=== PATIENT | female | born 1965 | race African-American/Black ===

== ENCOUNTER → 2016-09-12 | Outpatient (CLI) | payer MEDICARE, MEDICAID ==
[2016-09-12 18:03] LABS: ALBUMIN 3.3 g/dL (3.5-5.0); ANION GAP 9 (5-19); BLOOD UREA NITROGEN 18 mg/dL (7-20); CALCIUM 8.2 mg/dL (8.4-10.2); CARBON DIOXIDE 24 mmol/L (22-30); CHLORIDE 109 mmol/L (98-107); CREATININE RESULT 1.17 mg/dL (0.52-1.25); GLUCOSE 79 mg/dL (75-110); POTASSIUM 4.9 mmol/L (3.6-5.0); SODIUM 142.4 mmol/L (137-145)
== END ==
LOC: OD 17:06
PROVIDERS: ATTEND Internal Medicine Nephrology
DX: N18.3 Chronic kidney disease, stage 3 (moderate) (principal); E83.51 Hypocalcemia
CPT/HCPCS: 36415; 80048; 82040

== ENCOUNTER → 2016-12-05 | Outpatient (CLI) | payer MEDICARE, MEDICAID | LOC: WI 09:12 | PROVIDERS: ATTEND Internal Medicine | DX: Z12.31 Encounter for screening mammogram for malignant neoplasm of breast (principal) | CPT/HCPCS: 77067; G0202 ==

== ENCOUNTER → 2016-12-12 | Outpatient (CLI) | payer MEDICARE, MEDICAID ==
[2016-12-12 13:06] LABS: APPEARANCE,URINE CLEAR; BILIRUBIN,URINE NEGATIVE (NEGATIVE); GLUCOSE, URINE NEGATIVE (NEGATIVE); KETONES,URINE NEGATIVE (NEGATIVE); LEUKOCYTE ESTERASE,URINE NEGATIVE (NEGATIVE); NITRITE,URINE NEGATIVE (NEGATIVE); PROTEIN,URINE 30 mg/dL (NEGATIVE); URINE SPECIFIC GRAVITY 1.013; UROBILINOGEN,URINE NEGATIVE mg/dL (<2.0)
[2016-12-12 13:06] LABS: ABSOLUTE LYMPHOCYTES (AUTO) 1.3 10^3/uL (0.5-4.7); ABSOLUTE MONOCYTES (AUTO) 0.5 10^3/uL (0.1-1.4); ABSOLUTE NEUT (AUTO) 2.7 10^3/uL (1.7-8.2); BASOPHILS % (AUTO) 0.6 % (0-2); EOSINOPHILS % (AUTO) 0.1 % (0-6); HEMATOCRIT 27.2 % (36.0-47.0); HEMOGLOBIN 8.7 g/dL (12.0-15.5); HGB HCT DIFFERENCE -1.1; MEAN CORPUSCULAR HEMOGLOBIN 27.5 pg (27.0-33.4); MEAN CORPUSCULAR HGB CONC 32.1 g/dL (32.0-36.0); MEAN CORPUSCULAR VOLUME 86 fl (80-97); MONOCYTES % (AUTO) 11.5 % (3-13); RED BLOOD COUNT 3.17 10^6/uL (3.72-5.28); RED CELL DISTRIBUTION WIDTH 16.6 % (11.5-14.0); SEGMENTED NEUTROPHILS % (AUTO) 59.8 % (42-78); WHITE BLOOD COUNT 4.6 10^3/uL (4.0-10.5)
[2016-12-12 13:20] LABS: ALBUMIN 4.2 g/dL (3.5-5.0); ANION GAP 13 (5-19); BLOOD UREA NITROGEN 24 mg/dL (7-20); CALCIUM 8.9 mg/dL (8.4-10.2); CARBON DIOXIDE 17 mmol/L (22-30); CHLORIDE 113 mmol/L (98-107); CREATININE RESULT 1.44 mg/dL (0.52-1.25); GLUCOSE 144 mg/dL (75-110); PHOSPHORUS 4.2 mg/dL (2.5-4.5); POTASSIUM 5.2 mmol/L (3.6-5.0); SODIUM 142.9 mmol/L (137-145)
[2016-12-13 07:12] LABS: VITAMIN D 25-HYDROXY 14.2 ng/mL (30.0-100.0)
== END ==
LOC: OD 12:03
PROVIDERS: ATTEND Specialist
DX: G35 Multiple sclerosis (principal); N18.3 Chronic kidney disease, stage 3 (moderate); R80.1 Persistent proteinuria, unspecified; N25.81 Secondary hyperparathyroidism of renal origin
CPT/HCPCS: 36415; 80048; 81001; 82040; 82306; 82570; 83970; 84100; 84156; 85025

== ENCOUNTER → 2017-02-15 | Outpatient (CLI) | payer MEDICARE, MEDICAID ==
[2017-02-15 14:46] LABS: ANION GAP 9 (5-19); BLOOD UREA NITROGEN 27 mg/dL (7-20); CALCIUM 8.8 mg/dL (8.4-10.2); CARBON DIOXIDE 20 mmol/L (22-30); CHLORIDE 111 mmol/L (98-107); CREATININE RESULT 1.37 mg/dL (0.52-1.25); GLUCOSE 145 mg/dL (75-110); SODIUM 139.9 mmol/L (137-145)
[2017-02-15 16:09] LABS: URINE CREATININE 106.2 mg/dL (15-278); URINE PROTEIN 93.3 mg/dL (<12)
[2017-02-16 07:14] LABS: VITAMIN D 25-HYDROXY 13.3 ng/mL (30.0-100.0)
== END ==
LOC: OD 13:30
PROVIDERS: ATTEND Internal Medicine Nephrology
DX: N18.3 Chronic kidney disease, stage 3 (moderate) (principal); R80.1 Persistent proteinuria, unspecified; E55.9 Vitamin D deficiency, unspecified; N25.81 Secondary hyperparathyroidism of renal origin
CPT/HCPCS: 36415; 80048; 82306; 82570; 83970; 84156

== ENCOUNTER 2017-02-16 20:20 | Observation (INO) | payer MEDICARE, MEDICAID ==
[2017-02-16 22:13] LABS: ABSOLUTE MONOCYTES (AUTO) 0.5 10^3/uL (0.1-1.4); ABSOLUTE NEUT (AUTO) 2.5 10^3/uL (1.7-8.2); BASOPHILS % (AUTO) 0.6 % (0-2); EOSINOPHILS % (AUTO) 0.5 % (0-6); HEMATOCRIT 34.3 % (36.0-47.0); HEMOGLOBIN 10.3 g/dL (12.0-15.5); HGB HCT DIFFERENCE -3.4; LYMPHOCYTES % (AUTO) 39.6 % (13-45); MEAN CORPUSCULAR HEMOGLOBIN 26.3 pg (27.0-33.4); MEAN CORPUSCULAR HGB CONC 30.1 g/dL (32.0-36.0); MEAN CORPUSCULAR VOLUME 88 fl (80-97); MONOCYTES % (AUTO) 9.4 % (3-13); RED BLOOD COUNT 3.92 10^6/uL (3.72-5.28); RED CELL DISTRIBUTION WIDTH 15.3 % (11.5-14.0); SEGMENTED NEUTROPHILS % (AUTO) 49.9 % (42-78); WHITE BLOOD COUNT 5.1 10^3/uL (4.0-10.5)
[2017-02-16 22:32] LABS: ALANINE AMINOTRANSFERASE 25 U/L (9-52); ALKALINE PHOSPHATASE 182 U/L (38-126); ANION GAP 9 (5-19); ASPARTATE AMINO TRANSFERASE 13 U/L (14-36); BILIRUBIN,DIRECT 0.3 mg/dL (0.0-0.4); BILIRUBIN,TOTAL 0.3 mg/dL (0.2-1.3); BLOOD UREA NITROGEN 22 mg/dL (7-20); CALCIUM 7.2 mg/dL (8.4-10.2); CARBON DIOXIDE 17 mmol/L (22-30); CHLORIDE 117 mmol/L (98-107); CREATINE KINASE 45 U/L (30-135); CREATININE RESULT 1.07 mg/dL (0.52-1.25); GLUCOSE 166 mg/dL (75-110); POTASSIUM 4.3 mmol/L (3.6-5.0); SODIUM 142.5 mmol/L (137-145); TOTAL PROTEIN 5.4 g/dL (6.3-8.2)
[2017-02-16 22:33] LABS: ANISOCYTOSIS SLIGHT
[2017-02-16 22:35] LABS: HYPOCHROMASIA SLIGHT; POIKILOCYTOSIS SLIGHT; POLYCHROMASIA SLIGHT; TARGET CELLS 1+; TEAR DROP CELLS SLIGHT
[2017-02-16 22:50] LABS: TROPONIN I < 0.012 ng/mL
--- NOTE | 2017-02-16 22:53 | RADIOLOGY REPORT (SQ) ---
EXAM DESCRIPTION: CHEST SINGLE VIEW COMPLETED DATE/TIME: 02/16/2017 10:22 pm REASON FOR STUDY: chest pain COMPARISON: None. EXAM PARAMETERS: NUMBER OF VIEWS: One view. TECHNIQUE: Single frontal radiographic view of the chest acquired. RADIATION DOSE: NA LIMITATIONS: None. FINDINGS: LUNGS AND PLEURA: No opacities, masses or pneumothorax. No pleural effusion. MEDIASTINUM AND HILAR STRUCTURES: No masses. Contour normal. HEART AND VASCULAR STRUCTURES: Heart normal in size. Normal vasculature. BONES: No acute findings. HARDWARE: Port-A-Cath is again identified with its tip projected at the level of the superior vena ca va. OTHER: No other significant finding. IMPRESSION: No significant interval change. No acute findings. Other findings as noted above. TECHNICAL DOCUMENTATION: JOB ID: [id number]
--- NOTE | 2017-02-16 23:12 | ER Document Report ---
ED General - General Chief Complaint: Chest Pain Stated Complaint: CHEST PAIN Time Seen by Provider: 02/16/17 21:52 Mode of Arrival: Ambulatory Information source: Patient Notes: 51-year-old female history of multiple myeloma presents with complaints of chest pressure sensation almost daily lasting for 45 minutes at a time over the past week. Patient denies any fevers or chills admits to cough Patient notes normal stress test a few years ago Patient has been on chemotherapy last dose was Monday TRAVEL OUTSIDE OF THE [place] IN LAST 30 DAYS: No - HPI Onset: Last week Onset/Duration: Intermittent Quality of pain: Pressure Severity: Mild Pain Level: 1 Associated symptoms: Chest pain, Shortness of breath Exacerbated by: Denies Relieved by: Denies Similar symptoms previously: No Recently seen / treated by doctor: Yes - Related Data Allergies/Adverse Reactions: ibuprofen [From Motrin] Allergy (Verified 07/28/16 19:07) Penicillins Allergy (Verified 07/28/16 19:07) tramadol [Tramadol] Allergy (Verified 07/28/16 19:07) Past Medical History - Social History Smoking Status: Former Smoker Cigarette use (# per day): No Chew tobacco use (# tins/day): No Smoking Education Provided: No Frequency of alcohol use: None Drug Abuse: None Family History: Reviewed & Not Pertinent Patient has suicidal ideation: No Patient has homicidal ideation: No - Past Medical History Cardiac Medical History: Reports: Hx Hypercholesterolemia, Hx Hypertension Denies: Hx Coronary Artery Disease, Hx Heart Attack Pulmonary Medical History: Denies: Hx Asthma, Hx Bronchitis, Hx COPD, Hx Pneumonia, Hx Tuberculosis Neurological Medical History: Denies: Hx Cerebrovascular Accident, Hx Seizures Endocrine Medical History: Reports: Hx Diabetes Mellitus Type 2 Renal/ Medical History: Denies: Hx Peritoneal Dialysis Malignancy Medical History: Reports: Hx Bone Cancer - multiple myeloma Musculoskeltal Medical History: Denies Hx Arthritis, Reports Hx Multiple Sclerosis Psychiatric Medical History: Reports: Hx Anxiety, Hx Depression Past Surgical History: Reports: Hx Abdominal Surgery - gastric bypass 08/08, Hx Cholecystectomy, Hx Hysterectomy, Hx Tubal Ligation. Denies: Hx Pacemaker - Immunizations Hx Diphtheria, Pertussis, Tetanus Vaccination: No Review of Systems - Review of Systems Notes: REVIEW OF SYSTEMS: CONSTITUTIONAL : Denies fever, chills, or sweats. Denies recent illness. EENT: Denies eye, ear, throat, or mouth pain or symptoms. Denies nasal or sinus congestion or discharge. Denies throat, tongue, or mouth swelling or difficulty swallowing. CARDIOVASCULAR: Admits to chest pain RESPIRATORY: Admits to shortness of breath GASTROINTESTINAL: Denies abdominal pain or distention. Denies nausea, vomiting , or diarrhea. Denies blood in vomitus, stools, or per rectum. Denies black, tarry stools. Denies constipation. GENITOURINARY: Denies difficulty urinating, painful urination, burning, frequency, blood in urine, or discharge. FEMALE GENITOURINARY: Denies vaginal bleeding, heavy or abnormal periods, irregular periods. Denies vaginal discharge or odor. MUSCULOSKELETAL: Denies back or neck pain or stiffness. Denies joint pain or swelling. SKIN: Denies rash, lesions or sores. HEMATOLOGIC : Denies easy bruising or bleeding. LYMPHATIC: Denies swollen, enlarged glands. NEUROLOGICAL: Denies confusion or altered mental status. Denies passing out or loss of consciousness. Denies dizziness or lightheadedness. Denies headache. Denies weakness or paralysis or loss of use of either side. Denies problems with gait or speech. Denies sensory loss, numbness, or tingling. Denies seizures. PSYCHIATRIC: Denies anxiety or stress. Denies depression, suicidal ideation, or homicidal ideation. ALL OTHER SYSTEMS REVIEWED AND NEGATIVE. PHYSICAL EXAMINATION: GENERAL: Well-appearing, well-nourished and in no acute distress. HEAD: Atraumatic, normocephalic. EYES: Pupils equal round and reactive to light, extraocular movements intact, conjunctiva are normal. ENT: Nares patent, oropharynx clear without exudates. Moist mucous membranes. NECK: Normal range of motion, supple without lymphadenopathy LUNGS: Breath sounds clear to auscultation bilaterally and equal. No wheezes rales or rhonchi. HEART: Regular rate and rhythm without murmurs ABDOMEN: Soft, nontender, nondistended abdomen. No guarding, no rebound. No masses appreciated. Female : deferred Musculoskeletal: Normal range of motion, no pitting or edema. No cyanosis. NEUROLOGICAL: Cranial nerves grossly intact. Normal speech, normal gait. Normal sensory, motor exams PSYCH: Normal mood, normal affect. SKIN: Warm, Dry, normal turgor, no rashes or lesions noted. port Noted Dictation was performed using Dragon voice recognition software Physical Exam - Vital signs Vitals: Temp Pulse Resp BP Pulse Ox 98.1 F 121 H 16 151/88 H 97 02/16/17 20:55 02/16/17 20:55 02/16/17 20:55 02/16/17 20:55 02/16/17 20:55 Course - Re-evaluation Re-evalutation: 02/16/17 23:19 Patient will be admitted for observation for ACS rule out. A CT of the chest has been ordered due to the history of multiple myeloma and chest pain and shortness of breath - Vital Signs Vital signs: Temp Pulse Resp BP Pulse Ox 98.1 F 121 H 16 151/88 H 99 02/16/17 20:55 02/16/17 20:55 02/16/17 20:55 02/16/17 20:55 02/16/17 22:15 - Laboratory Result Diagrams: 02/16/17 21:00 02/16/17 21:00 Laboratory results interpreted by me: 02/16/17 02/16/17 21:00 21:00 Hgb 10.3 L Hct 34.3 L MCH 26.3 L MCHC 30.1 L RDW 15.3 H Plt Count 145 L Chloride 117 H Carbon Dioxide 17 L BUN 22 H Est GFR (Non-Af Amer) 54 L Glucose 166 H Calcium 7.2 L AST 13 L Alkaline Phosphatase 182 H Total Protein 5.4 L Albumin 3.0 L - Diagnostic Test Radiology reviewed: Image reviewed, Reports reviewed - EKG Interpretation by Me EKG shows normal: Sinus rhythm, [place], Intervals, QRS Complexes Rate: Tachycardia Discharge - Discharge Clinical Impression: Tachycardia Chest pain Qualifiers: Chest pain type: unspecified Qualified Code(s): R07.9 - Chest pain, unspecified Multiple myeloma Qualifiers: Multiple myeloma remission status: not in remission Qualified Code(s): C90.00 - Multiple myeloma not having achieved remission Admitting Provider: [facility] Admitted: Telemetry Referrals: DEREK HALEY MD [Primary Care Provider] - Follow up as needed
[2017-02-17] MEDS ORDERED: OXYCODONE-ACETAMINOPHEN 5-325 MG TABLET PO PRN (03:11)
[2017-02-17] MEDS ORDERED: INSULIN LISPRO 100 UNIT/ML 3 ML VIAL SUBCUT PRN (03:16)
[2017-02-17] MEDS ORDERED: DEXTROSE 40% GEL 15 GM TUBE PO PRN (03:16)
[2017-02-17] MEDS ORDERED: GLUCAGON,HUMAN RECOMB 1 MG INJ IM PRN (03:16)
[2017-02-17] MEDS ORDERED: DEXTROSE 40% GEL 15 GM TUBE X 2 PO PRN (03:16)
[2017-02-17] MEDS ORDERED: DEXTROSE 50%-WATER SYRINGE 25 GM/50 ML DOSE IV PRN (03:16)
[2017-02-17] MEDS ORDERED: DEXTROSE 50%-WATER SYRINGE 12.5 GM/25 ML DOSE IV PRN (03:16)
--- NOTE | 2017-02-17 03:34 | RADIOLOGY REPORT (SQ) ---
EXAM DESCRIPTION: CTA CHEST COMPLETED DATE/TIME: 02/17/2017 12:19 am REASON FOR STUDY: chest pain ,sob COMPARISON: 12.7.15. CT, renal stone, 10/06/2012. All TECHNIQUE: CT scan of the chest performed using helical scanning technique with dynamic intravenous contrast injection. Images reviewed with lung, soft tissue and bone windows. Reconstructed coronal and sagittal MPR images reviewed. Additional 3 dimensional post-processing performed to develop Maximal Intensity Projection images (IL P). All images stored on PACS. All CT scanners at this facility use dose modulation, iterative reconstruction, and/or weight based d osing when appropriate to reduce radiation dose to as low as reasonably achievable (ALARA). [facility]: Dose Right [facility]: CareDose [facility]: Dose Right [facility]: Teradose 4D [facility]: [employer] CONTRAST TYPE AND DOSE: contrast/concentration: Isovue 370.00 mg/ml; Total Contrast Delivered: 100.0 ml; Total Saline Delivered: 40.0 ml RENAL FUNCTION: Cr 1.1 RADIATION DOSE: Up-to-date CT equipment and radiation dose reduction techniques were employed. CTDIv ol: 14.6 mGy. DLP: 426 mGy-cm. . LIMITATIONS: None. FINDINGS: LUNGS AND PLEURA: No masses, infiltrates, pneumothorax. No pleural effusions, calcificati ons. AORTA AND GREAT VESSELS: No aneurysm or dissection. HEART: No pericardial effusion. PULMONARY ARTERIES: No emboli visualized in the main pulmonary arteries or the segmental branches. HILAR AND MEDIASTINAL STRUCTURES: No identified masses or abnormal nodes. HARDWARE: Cholecystectomy. Left cardiac stimulation device and leads. UPPER ABDOMEN: 2.1 cm left adrenal adenoma, without suspicious interval change. Small intra biliary gas. THYROID AND OTHER SOFT TISSUES: No masses. No adenopathy. BONES: No acute or significant finding. 3D MIPS: Confirm above findings. OTHER: No other significant finding. IMPRESSION: No acute cardiopulmonary findings. No evidence of pulmonary emboli. TECHNICAL DOCUMENTATION: JOB ID: [id number] Quality ID # [id number]: Final reports with documentation of one or more dose reduction techniques (e.g., Au tomated exposure control, adjustment of the mA and/or kV according to patient size, use of iterative reconstruction technique) 2010 [email or web address]- All Rights Reserved
--- NOTE | 2017-02-17 03:55 | EKG REPORT ---
SEVERITY:- OTHERWISE NORMAL ECG - SINUS TACHYCARDIA : Confirmed by: Racheal Cline MD 17-Feb-2017 03:55:04
[2017-02-17 04:40] LABS: TROPONIN I < 0.012 ng/mL
[2017-02-17 13:21] LABS: CREATINE KINASE MB 0.81 ng/mL (<4.55)
[2017-02-17 13:24] LABS: TROPONIN I < 0.012 ng/mL
[2017-02-17] MEDS ORDERED: EPOETIN ALFA INJ 40000 UNIT/1 ML (RENAL) IV SCH (14:15)
[2017-02-17] MEDS ORDERED: BORTEZOMIB 3.5 MG INJ SCH (14:15)
[2017-02-17] MEDS ORDERED: OXYCODONE HCL IR 5 MG TABLET PO PRN (15:07)
--- NOTE | 2017-02-17 18:13 | PDOC H&P ---
History of Present Illness Admission Date/PCP: 02/17/17 02:00 DEREK HALEY MD History of Present Illness: DICKSON THAO is a 51 year old female she came to the emergency room last night for evaluation of a 5 day history of chest pain. CTA chest was done in the ER, it was negative for pulmonary embolism. Patient was admitted for observation and to rule out acute [place]. The chest pain is atypical in character, the chest pain is not provoked by activity and relieved by rest. The pain is sharp, seemed to radiate to the arm, the right side. She has a history of multiple myeloma on active chemotherapy, type II diabetic mellitus presently well controlled. Past Medical History Cardiac Medical History: Reports: Hyperlipidema, Hypertension Endocrine Medical History: Reports: Diabetes Mellitus Type 2 Renal/ Medical History: Reports: Chronic Kidney Disease - CKD ,stage 3 Malignancy Medical History: Reports: Other - multiple myeloma Musculoskeltal Medical History: Denies: Arthritis Psychiatric Medical History: Reports: Depression Hematology: Reports: Anemia Past Surgical History Past Surgical History: Reports: Cholecystectomy, Hysterectomy, Tubal Ligation Denies: Pacemaker Social History Smoking Status: Former Smoker Number of Years Smokin Last Time Smoked: 07/08/2011 Frequency of Alcohol Use: None Hx Recreational Drug Use: No Drugs: None Hx Prescription Drug Abuse: No Family History Family History: Reviewed & Not Pertinent Parental Family History Reviewed: Yes Children Family History Reviewed: Yes Sibling(s) Family History Reviewed.: Yes Medication/Allergy Home Medications: Amlodipine Besylate [Norvasc 10 mg Tablet] 10 mg PO DAILY 02/17/17 Calcitriol [Rocaltrol 0.25 mcg Capsule] 0.25 mcg PO DAILY 02/17/17 Donepezil HCl [Aricept 5 mg Tablet] 5 mg PO QHS 02/17/17 Doxepin HCl [Silenor] 6 mg PO QHS 02/17/17 Epoetin Leandro [Procrit Inj 40,000 Unit/1 ml Vial (Renal)] 40,000 unit INJ [id number] 02/17/17 Ergocalciferol (Vitamin D2) [Drisdol 50,000 unit (1.25MG) Capsule] 50,000 units PO TOMLINSON@1000 02/17/17 Folic Acid [Folvite 1 mg Tablet] 1 mg PO DAILY 02/17/17 Hydralazine HCl [Apresoline 25 mg Tablet] 25 mg PO TID 02/17/17 Losartan/Hydrochlorothiazide [Hyzaar 100-25 Tablet] 1 tab PO DAILY 02/17/17 Metoprolol Tartrate [Lopressor 50 mg Tablet] 50 mg PO Q12 02/17/17 Montelukast Sodium [Singulair 10 mg Tablet] 10 mg PO QHS 02/17/17 Oxycodone HCl [Oxycodone HCl 10 MG Tablet] 10 mg PO Q6HP PRN 02/17/17 Potassium Chloride [Klor-Con Sprinkle] 10 meq PO DAILY 02/17/17 Velcade 3.5 mg INJ [id number] 02/17/17 Vortioxetine Hydrobromide [Trintellix] 10 mg PO DAILY 02/17/17 Allergies/Adverse Reactions: ibuprofen [From Motrin] Allergy (Verified 07/28/16 19:07) Penicillins Allergy (Verified 07/28/16 19:07) tramadol [Tramadol] Allergy (Verified 07/28/16 19:07) Review of Systems Constitutional: PRESENT: anorexia Eyes: ABSENT: visual disturbances Ears: ABSENT: hearing changes Cardiovascular: PRESENT: chest pain Respiratory: ABSENT: cough, hemoptysis Gastrointestinal: ABSENT: abdominal pain, constipation, diarrhea, hematemesis, hematochezia, nausea, vomiting Genitourinary: ABSENT: dysuria, hematuria Musculoskeletal: ABSENT: joint swelling Integumentary: ABSENT: rash, wounds Neurological: ABSENT: abnormal gait, abnormal speech, confusion, dizziness, focal weakness, syncope Psychiatric: ABSENT: anxiety, depression, homidical ideation, suicidal ideation Endocrine: ABSENT: cold intolerance, heat intolerance, menstrual abnormalities, polydipsia, polyuria Hematologic/Lymphatic: ABSENT: easy bleeding, easy bruising, lymphadenopathy Physical Exam Vital Signs: Temp Pulse Resp BP Pulse Ox 97.8 F 82 19 163/81 H 100 02/17/17 15:52 02/17/17 15:52 02/17/17 15:52 02/17/17 15:52 02/17/17 15:52 Intake & Output 02/16/17 02/17/17 02/18/17 06:59 06:59 06:59 Intake Total 150 373 Balance 150 373 General appearance: PRESENT: no acute distress, well-developed, well-nourished Head exam: PRESENT: atraumatic, normocephalic Eye exam: PRESENT: conjunctiva pink, EOMI, PERRLA Ear exam: PRESENT: normal external ear exam Mouth exam: PRESENT: moist, tongue midline Neck exam: PRESENT: full ROM. ABSENT: carotid bruit, JVD, lymphadenopathy, thyromegaly Cardiovascular exam: PRESENT: RRR, +S1, +S2 Pulses: PRESENT: normal dorsalis pedis pul, +2 pedal pulses bilateral Vascular exam: PRESENT: normal capillary refill GI/Abdominal exam: PRESENT: normal bowel sounds, soft Rectal exam: PRESENT: deferred Neurological exam: PRESENT: alert, awake, oriented to person, oriented to place , oriented to time, oriented to situation, CN II-XII grossly intact Psychiatric exam: PRESENT: appropriate affect, normal mood Skin exam: PRESENT: dry, intact, warm Results Laboratory Results: 02/17/17 02/17/17 02/17/17 03:30 03:30 12:30 Creatine Kinase 46 47 CK-MB (CK-2) 0.80 Troponin I < 0.012 02/17/17 12:30 Creatine Kinase CK-MB (CK-2) 0.81 Troponin I < 0.012 Impressions: Chest X-Ray 02/16/17 21:00 IMPRESSION: No significant interval change. No acute findings. Other findings as noted above. Chest/Abdomen CTA 02/16/17 23:11 IMPRESSION: No acute cardiopulmonary findings. No evidence of pulmonary emboli. Assessment & Plan - Diagnosis (1) Chest pain Qualifiers: Chest pain type: unspecified Qualified Code(s): R07.9 - Chest pain, unspecified Is this a current diagnosis for this admission?: YesPlan: She is admitted for observation and evaluation of chest pain, cardiac enzymes are negative for acute [place], stress test will be scheduled outpatient (2) Multiple myeloma Qualifiers: Multiple myeloma remission status: not in remission Qualified Code(s): C90.00 - Multiple myeloma not having achieved remission Is this a current diagnosis for this admission?: Yes
--- NOTE | 2017-02-17 18:15 | PDOC DISCHARGE SUMMARY ---
General - Admit/Disc Date/PCP Admission Date/Primary Care Provider: 02/17/17 02:00 DEREK HALEY MD Discharge Date: 02/17/17 - Discharge Diagnosis (1) Chest pain Is this a current diagnosis for this admission?: Yes (2) Multiple myeloma Is this a current diagnosis for this admission?: Yes - Additional Information Discharge Diet: Diabetic Discharge Activity: Activity As Tolerated Home Medications: Amlodipine Besylate [Norvasc 10 mg Tablet] 10 mg PO DAILY 02/17/17 Calcitriol [Rocaltrol 0.25 mcg Capsule] 0.25 mcg PO DAILY 02/17/17 Donepezil HCl [Aricept 5 mg Tablet] 5 mg PO QHS 02/17/17 Doxepin HCl [Silenor] 6 mg PO QHS 02/17/17 Epoetin Leandro [Procrit Inj 40,000 Unit/1 ml Vial (Renal)] 40,000 unit INJ [id number] 02/17/17 Ergocalciferol (Vitamin D2) [Drisdol 50,000 unit (1.25MG) Capsule] 50,000 units PO TOMLINSON@1000 02/17/17 Folic Acid [Folvite 1 mg Tablet] 1 mg PO DAILY 02/17/17 Hydralazine HCl [Apresoline 25 mg Tablet] 25 mg PO TID 02/17/17 Losartan/Hydrochlorothiazide [Hyzaar 100-25 Tablet] 1 tab PO DAILY 02/17/17 Metoprolol Tartrate [Lopressor 50 mg Tablet] 50 mg PO Q12 02/17/17 Montelukast Sodium [Singulair 10 mg Tablet] 10 mg PO QHS 02/17/17 Oxycodone HCl [Oxycodone HCl 10 MG Tablet] 10 mg PO Q6HP PRN 02/17/17 Potassium Chloride [Klor-Con Sprinkle] 10 meq PO DAILY 02/17/17 Velcade 3.5 mg INJ [id number] 02/17/17 Vortioxetine Hydrobromide [Trintellix] 10 mg PO DAILY 02/17/17 History of Present Illness History of Present Illness: DICKSON THAO is a 51 year old female she came to the emergency room last night for evaluation of a 5 day history of chest pain. CTA chest was done in the ER, it was negative for pulmonary embolism. Patient was admitted for observation and to rule out acute [place]. The chest pain is atypical in character, the chest pain is not provoked by activity and relieved by rest. The pain is sharp, seemed to radiate to the arm, the right side. She has a history of multiple myeloma on active chemotherapy, type II diabetic mellitus presently well controlled. Hospital Course Hospital Course: Patient was admitted for evaluation of chest pain, CTA chest was done in the emergency room, it was negative for pulmonary embolism. Cardiac enzymes were negative for acute NV 3, she will be discharged home today with outpatient Cardiolite stress test. Physical Exam Vital Signs: Temp Pulse Resp BP Pulse Ox 97.8 F 82 19 163/81 H 100 02/17/17 15:52 02/17/17 15:52 02/17/17 15:52 02/17/17 15:52 02/17/17 15:52 Intake & Output 02/16/17 02/17/17 02/18/17 06:59 06:59 06:59 Intake Total 150 373 Balance 150 373 General appearance: PRESENT: no acute distress, well-developed, well-nourished Head exam: PRESENT: atraumatic, normocephalic Eye exam: PRESENT: conjunctiva pink, EOMI, PERRLA Ear exam: PRESENT: normal external ear exam Mouth exam: PRESENT: moist, tongue midline Neck exam: PRESENT: full ROM Respiratory exam: PRESENT: clear to auscultation kody Cardiovascular exam: PRESENT: RRR, +S1, +S2 Vascular exam: PRESENT: normal capillary refill GI/Abdominal exam: PRESENT: normal bowel sounds, soft Rectal exam: PRESENT: deferred Neurological exam: PRESENT: alert, awake, oriented to person, oriented to place , oriented to time, oriented to situation, CN II-XII grossly intact Psychiatric exam: PRESENT: appropriate affect, normal mood Skin exam: PRESENT: dry, intact, warm Results Laboratory Results: 02/17/17 02/17/17 02/17/17 03:30 03:30 12:30 Creatine Kinase 46 47 CK-MB (CK-2) 0.80 Troponin I < 0.012 02/17/17 12:30 Creatine Kinase CK-MB (CK-2) 0.81 Troponin I < 0.012 Impressions: Chest X-Ray 02/16/17 21:00 IMPRESSION: No significant interval change. No acute findings. Other findings as noted above. Chest/Abdomen CTA 02/16/17 23:11 IMPRESSION: No acute cardiopulmonary findings. No evidence of pulmonary emboli.
[2017-02-17 18:23] VITALS: BP 155/91
[2017-02-17] MEDS ORDERED: HYDRALAZINE HCL 25 MG TABLET PO SCH (22:00)
[2017-02-17] MEDS ORDERED: MONTELUKAST SODIUM 10 MG TABLET PO SCH (22:00)
[2017-02-17] MEDS ORDERED: (PENDING PHARMACY ID) (Doxepin Hcl [Silenor] 6 MG) PO SCH (22:00)
[2017-02-17] MEDS ORDERED: DONEPEZIL HCL 5 MG TABLET PO SCH (22:00)
[2017-02-17] MEDS ORDERED: METOPROLOL TARTRATE 50 MG TABLET PO SCH (22:00)
[2017-02-18] MEDS ORDERED: (PENDING PHARMACY ID) (Losartan/Hydrochlorothiazide [Hyzaar 100-25 Tablet] 1 TAB) PO SCH (10:00)
[2017-02-18] MEDS ORDERED: FOLIC ACID 1 MG TABLET PO SCH ×2 (10:00)
[2017-02-18] MEDS ORDERED: POTASSIUM CHLORIDE 10 MEQ PO SCH (10:00)
[2017-02-18] MEDS ORDERED: POTASSIUM CHLORIDE 10 MEQ TABLET.SA PO SCH (10:00)
[2017-02-18] MEDS ORDERED: CALCITRIOL 0.25 MCG CAPSULE PO SCH (10:00)
[2017-02-18] MEDS ORDERED: (PENDING PHARMACY ID) (Vortioxetine Hydrobromide [Trintellix] 10 MG) PO SCH (10:00)
[2017-02-18] MEDS ORDERED: LOSARTAN POTASSIUM 50 MG TABLET PO SCH (10:00)
[2017-02-18] MEDS ORDERED: HYDROCHLOROTHIAZIDE 25 MG TABLET PO SCH (10:00)
[2017-02-18] MEDS ORDERED: AMLODIPINE BESYLATE 10 MG TABLET PO SCH (10:00)
[2017-02-19] MEDS ORDERED: ERGOCALCIFEROL (VITAMIN D2) 50000 UNIT (1.25 MG) CAPSULE PO SCH ×2 (10:00)
== END 2017-02-17 18:45 | disposition home or self-care (01) ==
LOC: ER 20:20 → UNDOADMOB 23:40 → EH 23:40 → 4N 02-17 01:43
PROVIDERS: ADMIT Internal Medicine; ATTEND Internal Medicine
DX: R07.89 Other chest pain (principal); C90.00 Multiple myeloma not having achieved remission; I12.9 Hypertensive chronic kidney disease with stage 1 through stage 4 chronic kidney disease, or unspecified chronic kidney disease; E11.22 Type 2 diabetes mellitus with diabetic chronic kidney disease; N18.3 Chronic kidney disease, stage 3 (moderate); R00.0 Tachycardia, unspecified; Z79.899 Other long term (current) drug therapy; Z87.891 Personal history of nicotine dependence; Z90.49 Acquired absence of other specified parts of digestive tract; Z98.84 Bariatric surgery status
CPT/HCPCS: 93005; 36415; 82553 ×2; 82962; 82550 ×2; 85025; 80053; 84484 ×2; 71010; 71275; 93010; A9270 ×2; J1642; 99285; G0378; J1815

== ENCOUNTER → 2017-03-16 | Outpatient (CLI) | payer MEDICARE, MEDICAID ==
[~2017-03-16] MED LIST: AMINOPHYLLINE INJ/PF 250 MG/10 ML SDV IV ONE; REGADENOSON INJ 0.4 MG/5 ML DISP.SYRIN IV ONE
--- NOTE | 2017-03-16 20:13 | DRAGON STRESS TEST REPORT ---
INTRAVENOUS LEXISCAN CARDIOLITE STRESS TEST USING SINGLE PHOTON EMMISION COMPUTERIZED TOMOGRAPHIC. DATE OF PROCEDURE: March 16, 2017 INDICATION : Chest pain CARDIAC RISK FACTORS: Diabetes and hypertension RESTING EKG: Sinus rhythm, minor nonspecific ST segment depression with T-wave inversion lateral chest leads STRESS EKG: No significant changes noted with LexiScan bolus REASON FOR TERMINATION: Protocol. PROCEDURE REPORT: Baseline heart rate 72 beats per minute with blood pressure of 178/95. Patient had no significant complaints. Heart rate at 2 minutes post bolus 125 with a blood pressure of 157/75. 3 minutes post bolus heart rate 114 with blood pressure of 179/82. No significant EKG changes were noted. Patient had no significant complaints during the procedure or postprocedure. Patient injected with Aminophyllin 75 mg at 3 minutes or later after Lexiscan bolus. CONCLUSIONS: Normal EKG and hemodynamic response to IV LexiScan. NUCLEAR DATA: At rest the patient was given 10.45 millicuries of technetium 99 sestamibi injected intravenously. As per protocol rest gated SPECT images were obtained. Subsequently the patient was given intravenous LexiScan at a dose of 0.4 mg in 5 mL intravenously, followed by flush with normal saline. Subsequently the stress dose of 32.5 millicuries of technetium 99 sestamibi was injected intravenously. As per protocol stress gated images were obtained. NUCLEAR INTERPRETATION: Both raw and processed data were used for interpretation. Visual, qualitative, computer-generated quantitative data was used. There was good myocardial uptake of technetium compound. Motion artifact and soft tissue attenuations were noted. Increased visceral uptake was noted. Mild decreased uptake noted in the basal and mid inferior wall and distal anterior wall noted, consistent with mild ischemia of the basal and mid inferior wall and also distal anterior wall. No definitive areas of fixed perfusion defect or scars noted. EKG gated imaging showed LV EF at 53 %, rest and stress gated EF similar visually. T. I D. ratio was 1.58. Lung heart ratio noted to be within normal limits 0.27. No significant extracardiac and abnormal radiotracer activities were noted. RV free wall uptake was noted to be []. IMPRESSION: Also refer to comments under nuclear interpretation. Also test results needs to be interpreted in the context of pretest probability. 1. Mild basal and mid inferior wall ischemia and mild distal anterior wall ischemia noted. 2. There is no definitive scintigraphic evidence of myocardial infarction/scar. 3. EKG gated imaging shows left ejection fraction of approximately 53 %. 4. Clinical correlation requested as occasionally worse ischemia could be missed. In approximately 10% of the cases Lexiscan may not cause adequate vasodilatory stress. 5. Patient was noted to have transient ischemic dilatation however LV cavity was small to start with. This may suggest balanced ischemia. RECOMMENDATIONS: Aggressive risk factor modification, medical therapy. Clinical correlation with echocardiogram derived ejection fraction. Inability to exercise by itself can lead to increased cardiovascular event risks. Consider cardiology consultation and or follow-up if clinically indicated. I AM AVAILABLE FOR CARDIOLOGY CONSULTATION AND FOLLOWUP IF REQUESTED BY PMD Dinah Winston M.D., RADHA [employer] hardware assembler, Board certified in cardiovascular diseases, Nuclear cardiology, Echocardiography Cardiac CT and cardiac MRI Ph. [phone] [facility]
== END ==
LOC: RAD 08:03
PROVIDERS: ATTEND Internal Medicine
DX: R07.9 Chest pain, unspecified (principal)
CPT/HCPCS: 93017; 78452; A9500; J2785; J0280; Q9969

== ENCOUNTER 2017-05-09 00:58 | Emergency (ER) | payer MEDICARE, MEDICAID ==
--- NOTE | 2017-05-09 02:35 | ER Document Report ---
ED Burn/Smoke/Toxic Fumes - General Chief Complaint: Chemical Exposure Stated Complaint: POSSIBLE POISON[BLEACH} Time Seen by Provider: 05/09/17 02:34 Notes: The patient is a 51-year-old female, PMHx HTN, who presents after she accidentally drank a small amount of bleach in a cup of tea 8 hours ago. Patient has no symptoms at this time. TRAVEL OUTSIDE OF THE [place] IN LAST 30 DAYS: No COUNTRY TRAVELED TO/FROM: [facility] - Related Data Allergies/Adverse Reactions: ibuprofen [From Motrin] Allergy (Verified 05/09/17 01:16) Penicillins Allergy (Verified 05/09/17 01:16) tramadol [Tramadol] Allergy (Verified 05/09/17 01:16) Past Medical History - General Information source: Patient - Social History Smoking Status: Unknown if Ever Smoked Family History: Reviewed & Not Pertinent Patient has suicidal ideation: No Patient has homicidal ideation: No - Past Medical History Cardiac Medical History: Reports: Hx Hypercholesterolemia, Hx Hypertension Denies: Hx Coronary Artery Disease, Hx Heart Attack Pulmonary Medical History: Denies: Hx Asthma, Hx Bronchitis, Hx COPD, Hx Pneumonia, Hx Tuberculosis Neurological Medical History: Denies: Hx Cerebrovascular Accident, Hx Seizures Endocrine Medical History: Reports: Hx Diabetes Mellitus Type 2 Renal/ Medical History: Denies: Hx Peritoneal Dialysis Malignancy Medical History: Reports: Hx Bone Cancer - multiple myeloma Musculoskeltal Medical History: Denies Hx Arthritis, Reports Hx Multiple Sclerosis Psychiatric Medical History: Reports: Hx Anxiety, Hx Depression Past Surgical History: Reports: Hx Abdominal Surgery - gastric bypass 08/08, Hx Cholecystectomy, Hx Hysterectomy, Hx Tubal Ligation. Denies: Hx Pacemaker - Immunizations Hx Diphtheria, Pertussis, Tetanus Vaccination: No Review of Systems - Review of Systems Notes: REVIEW OF SYSTEMS: CONSTITUTIONAL: -fevers, -chills EENT: -eye pain, -difficulty swallowing, -nasal congestion CARDIOVASCULAR:-chest pain, -syncope. RESPIRATORY: -cough, -SOB GASTROINTESTINAL: -abdominal pain, -nausea, -vomiting, -diarrhea GENITOURINARY: -dysuria, -hematuria MUSCULOSKELETAL: -back pain, -neck pain SKIN: -rash or skin lesions. HEMATOLOGIC: -easy bruising or bleeding. LYMPHATIC: -swollen, enlarged glands. NEUROLOGICAL: -altered mental status or loss of consciousness, -headache, - neurologic symptoms PSYCHIATRIC: -anxiety, -depression. ALL OTHER SYSTEMS REVIEWED AND NEGATIVE. Physical Exam - Vital signs Vitals: Temp Pulse Resp BP Pulse Ox 98.4 F 86 18 183/86 H 98 05/09/17 01:05/09/17 01:05/09/17 01:05/09/17 01:05/09/17 01:19 - Notes Notes: PHYSICAL EXAMINATION: GENERAL: Well-appearing, well-nourished and in no acute distress. HEAD: Atraumatic, normocephalic. EYES: Pupils equal round and reactive to light, extraocular movements intact, sclera anicteric, conjunctiva are normal. ENT: nares patent, oropharynx clear without exudates. Moist mucous membranes. NECK: Normal range of motion, supple without lymphadenopathy LUNGS: Breath sounds clear to auscultation bilaterally and equal. No wheezes rales or rhonchi. HEART: Regular rate and rhythm without murmurs ABDOMEN: Soft, nontender, normoactive bowel sounds. No guarding, no rebound. No masses appreciated. EXTREMITIES: Normal range of motion, no pitting or edema. No cyanosis. NEUROLOGICAL: Cranial nerves grossly intact. Normal speech, normal gait. Normal sensory and motor exams. PSYCH: Normal mood, normal affect. SKIN: Warm, Dry, normal turgor, no rashes or lesions noted. Course - Re-evaluation Re-evalutation: Patient has no effects 8 hours after she may have drank a very small amount of household bleach, which is very diluted. - Vital Signs Vital signs: Temp Pulse Resp BP Pulse Ox 98.4 F 86 18 183/86 H 98 05/09/17 01:05/09/17 01:05/09/17 01:05/09/17 01:05/09/17 01:19 Discharge - Discharge Clinical Impression: Ingestion of bleach Qualifiers: Encounter type: initial encounter Injury intent: undetermined intent Qualified Code(s): T54.94XA - Toxic effect of unspecified corrosive substance, undetermined, initial encounter Condition: Stable Disposition: HOME, SELF-CARE Additional Instructions: You do not have any evidence of dangerous effects from the small amount of household bleach that you may have ingested. Forms: Elevated Blood Pressure
[2017-05-09 02:58] VITALS: BP 180/83
== END 2017-05-09 02:55 | disposition home or self-care (01) ==
LOC: ER 00:58
DX: T54.94XA Toxic effect of unspecified corrosive substance, undetermined, initial encounter (principal); I10 Essential (primary) hypertension; E11.9 Type 2 diabetes mellitus without complications; Z88.6 Allergy status to analgesic agent; Z88.0 Allergy status to penicillin; Z88.5 Allergy status to narcotic agent; Z85.830 Personal history of malignant neoplasm of bone; Z98.84 Bariatric surgery status
CPT/HCPCS: 99283

== ENCOUNTER → 2017-05-17 | Outpatient (CLI) | payer MEDICARE, MEDICAID ==
[2017-05-17 12:48] LABS: HEMATOCRIT 33.7 % (36.0-47.0); HEMOGLOBIN 10.7 g/dL (12.0-15.5); HGB HCT DIFFERENCE -1.6; MEAN CORPUSCULAR HEMOGLOBIN 25.8 pg (27.0-33.4); MEAN CORPUSCULAR HGB CONC 31.7 g/dL (32.0-36.0); MEAN CORPUSCULAR VOLUME 81 fl (80-97); RED BLOOD COUNT 4.14 10^6/uL (3.72-5.28); RED CELL DISTRIBUTION WIDTH 16.2 % (11.5-14.0); WHITE BLOOD COUNT 4.3 10^3/uL (4.0-10.5)
[2017-05-17 12:50] LABS: APPEARANCE,URINE CLEAR; BILIRUBIN,URINE NEGATIVE (NEGATIVE); GLUCOSE, URINE NEGATIVE (NEGATIVE); KETONES,URINE NEGATIVE (NEGATIVE); LEUKOCYTE ESTERASE,URINE NEGATIVE (NEGATIVE); NITRITE,URINE NEGATIVE (NEGATIVE); PROTEIN,URINE 100 mg/dL (NEGATIVE); URINE SPECIFIC GRAVITY 1.014; UROBILINOGEN,URINE NEGATIVE mg/dL (<2.0)
[2017-05-17 13:12] LABS: ALANINE AMINOTRANSFERASE 35 U/L (9-52); ALBUMIN 4.2 g/dL (3.5-5.0); ALKALINE PHOSPHATASE 198 U/L (38-126); ANION GAP 10 (5-19); ASPARTATE AMINO TRANSFERASE 21 U/L (14-36); BILIRUBIN,DIRECT 0.4 mg/dL (0.0-0.4); BILIRUBIN,TOTAL 0.6 mg/dL (0.2-1.3); BLOOD UREA NITROGEN 22 mg/dL (7-20); CALCIUM 9.2 mg/dL (8.4-10.2); CARBON DIOXIDE 21 mmol/L (22-30); CHLORIDE 113 mmol/L (98-107); GLUCOSE 171 mg/dL (75-110); POTASSIUM 4.9 mmol/L (3.6-5.0); SODIUM 143.5 mmol/L (137-145); TOTAL PROTEIN 6.6 g/dL (6.3-8.2); URIC ACID 8.9 mg/dL (2.5-7.5)
[2017-05-17 13:15] LABS: ALANINE AMINOTRANSFERASE 31 U/L (9-52); ALBUMIN 4.2 g/dL (3.5-5.0); ALKALINE PHOSPHATASE 190 U/L (38-126); ASPARTATE AMINO TRANSFERASE 21 U/L (14-36); BILIRUBIN,DIRECT 0.4 mg/dL (0.0-0.4); BILIRUBIN,TOTAL 0.5 mg/dL (0.2-1.3); TOTAL PROTEIN 6.4 g/dL (6.3-8.2)
[2017-05-17 13:23] LABS: BAND NEUTROPHILS % (MANUAL) 1 % (3-5); BASOPHILS % (MANUAL) 0 % (0-2); EOSINOPHILS % (MANUAL) 0 % (0-6); NUCLEATED RED BLOOD CELLS 1 /100 WBC (0); TOTAL CELLS COUNTED 100
[2017-05-17 13:40] LABS: THYROID STIMULATING HORMONE 0.79 uIU/mL (0.47-4.68)
[2017-05-17 13:50] LABS: ANISOCYTOSIS 1+; HYPOCHROMASIA 1+; POLYCHROMASIA 1+; ROULEAUX SLIGHT; TOXIC GRANULATION 1+; TOXIC VACUOLATION PRESENT
[2017-05-17 13:51] LABS: OVALOCYTES 1+; POIKILOCYTOSIS 1+; TARGET CELLS SLIGHT; TEAR DROP CELLS SLIGHT
[2017-05-17 14:02] LABS: LYMPHOCYTES % (MANUAL) 34 % (13-45)
[2017-05-17 14:21] LABS: HEMATOCRIT 33.7 % (36.0-47.0); HEMOGLOBIN 10.7 g/dL (12.0-15.5); HGB HCT DIFFERENCE -1.6; MEAN CORPUSCULAR HEMOGLOBIN 25.8 pg (27.0-33.4); MEAN CORPUSCULAR HGB CONC 31.7 g/dL (32.0-36.0); MEAN CORPUSCULAR VOLUME 81 fl (80-97); RED BLOOD COUNT 4.14 10^6/uL (3.72-5.28); RED CELL DISTRIBUTION WIDTH 16.2 % (11.5-14.0); WHITE BLOOD COUNT 4.3 10^3/uL (4.0-10.5)
[2017-05-18 10:38] LABS: CREATININE URINE 79.6 mg/dL (Not Estab.); MICROALBUMIN URINE 340.2 ug/mL (Not Estab.)
== END ==
LOC: OD 11:04
PROVIDERS: ATTEND Internal Medicine
DX: G35 Multiple sclerosis (principal); Z79.899 Other long term (current) drug therapy; M54.12 Radiculopathy, cervical region; E11.42 Type 2 diabetes mellitus with diabetic polyneuropathy
CPT/HCPCS: 36415; 80053; 80076; 81001; 82043; 82570; 83036; 84439; 84443; 84481; 84550; 85025; 85027

== ENCOUNTER 2017-10-08 17:26 | Observation (INO) | payer MEDICARE, MEDICAID ==
[2017-10-08 18:06] LABS: ABSOLUTE LYMPHOCYTES (AUTO) 2.8 10^3/uL (0.5-4.7); ABSOLUTE MONOCYTES (AUTO) 0.5 10^3/uL (0.1-1.4); ABSOLUTE NEUT (AUTO) 3.8 10^3/uL (1.7-8.2); BASOPHILS % (AUTO) 0.3 % (0-2); EOSINOPHILS % (AUTO) 0.6 % (0-6); HEMATOCRIT 33.5 % (36.0-47.0); HEMOGLOBIN 10.2 g/dL (12.0-15.5); LYMPHOCYTES % (AUTO) 38.8 % (13-45); MEAN CORPUSCULAR HGB CONC 30.6 g/dL (32.0-36.0); MEAN CORPUSCULAR VOLUME 79 fl (80-97); PLATELET COUNT 215 10^3/uL (150-450); RED BLOOD COUNT 4.26 10^6/uL (3.72-5.28); RED CELL DISTRIBUTION WIDTH 14.8 % (11.5-14.0); SEGMENTED NEUTROPHILS % (AUTO) 53.3 % (42-78); TOTAL CELLS COUNTED % (AUTO) 100 %; WHITE BLOOD COUNT 7.2 10^3/uL (4.0-10.5)
--- NOTE | 2017-10-08 18:19 | RADIOLOGY REPORT (SQ) ---
EXAM DESCRIPTION: CHEST SINGLE VIEW COMPLETED DATE/TIME: 10/08/2017 6:02 pm REASON FOR STUDY: History of lung cancer, altered mental status COMPARISON: 02/16/2017 EXAM PARAMETERS: NUMBER OF VIEWS: One view. TECHNIQUE: Single frontal radiographic view of the chest acquired. RADIATION DOSE: NA LIMITATIONS: None. FINDINGS: LUNGS AND PLEURA: No opacities, masses or pneumothorax. No pleural effusion. MEDIASTINUM AND HILAR STRUCTURES: No masses. Contour normal. HEART AND VASCULAR STRUCTURES: Heart normal in size. Normal vasculature. BONES: No acute findings. HARDWARE: Venous access catheter tip cavoatrial junction. OTHER: No other significant finding. IMPRESSION: NO ACUTE RADIOGRAPHIC FINDING IN THE CHEST. TECHNICAL DOCUMENTATION: JOB ID: [id number] [employer]- All Rights Reserved
--- NOTE | 2017-10-08 18:20 | RADIOLOGY REPORT (SQ) ---
EXAM DESCRIPTION: CT HEAD WITHOUT COMPLETED DATE/TIME: 10/08/2017 6:03 pm REASON FOR STUDY: Altered mental status, Hx lung cancer COMPARISON: 2006 TECHNIQUE: Axial images acquired through the brain without intravenous contrast. Images reviewed wi th bone, brain and subdural windows. Images stored on PACS. All CT scanners at this facility use dose modulation, iterative reconstruction, and/or weight based d osing when appropriate to reduce radiation dose to as low as reasonably achievable (ALARA). [facility]: Dose Right [facility]: CareDose [facility]: Dose Right [facility]: Teradose 4D [facility]: Smart Incentive Targeting RADIATION DOSE: CT Rad equipment meets quality standard of care and radiation dose reduction techniq ues were employed. CTDIvol: 64.6 mGy. DLP: 1034 mGy-cm. mGy. LIMITATIONS: None. FINDINGS: VENTRICLES: Prominent. CEREBRUM: No masses. No hemorrhage. No midline shift. Areas of low density in the white matter mos t likely due to chronic micro-vascular ischemic change. No evidence for acute infarction. CEREBELLUM: No masses. No hemorrhage. No alteration of density. No evidence for acute infarction. EXTRAAXIAL SPACES: Mild age-related involutional change. No fluid collections. No masses. ORBITS AND GLOBE: No intra- or extraconal masses. Normal contour of globe without masses. CALVARIUM: No fracture. PARANASAL SINUSES: No fluid or mucosal thickening. SOFT TISSUES: No mass or hematoma. OTHER: No other significant finding. IMPRESSION: MILD CHRONIC CHANGES OF ATROPHY AND MICROVASCULAR ISCHEMIA. NO ACUTE PROCESS. EVIDENCE OF ACUTE STROKE: NO. TECHNICAL DOCUMENTATION: JOB ID: [id number] Quality ID # [id number]: Final reports with documentation of one or more dose reduction techniques (e.g., Au tomated exposure control, adjustment of the mA and/or kV according to patient size, use of iterative reconstruction technique) 2010 [employer]- All Rights Reserved
[2017-10-08 18:21] LABS: ALANINE AMINOTRANSFERASE 32 U/L (9-52); ALBUMIN 4.3 g/dL (3.5-5.0); ALKALINE PHOSPHATASE 188 U/L (38-126); ANION GAP 11 (5-19); ASPARTATE AMINO TRANSFERASE 22 U/L (14-36); BILIRUBIN,DIRECT 0.1 mg/dL (0.0-0.4); BILIRUBIN,TOTAL 0.2 mg/dL (0.2-1.3); BLOOD UREA NITROGEN 22 mg/dL (7-20); CALCIUM 9.2 mg/dL (8.4-10.2); CARBON DIOXIDE 20 mmol/L (22-30); CHLORIDE 109 mmol/L (98-107); GLUCOSE 220 mg/dL (75-110); POTASSIUM 4.9 mmol/L (3.6-5.0); SODIUM 139.5 mmol/L (137-145); TOTAL PROTEIN 6.3 g/dL (6.3-8.2)
[2017-10-08 18:27] LABS: APPEARANCE,URINE CLEAR; BILIRUBIN,URINE NEGATIVE (NEGATIVE); COLOR,URINE YELLOW; GLUCOSE, URINE 50 mg/dL (NEGATIVE); KETONES,URINE NEGATIVE (NEGATIVE); LEUKOCYTE ESTERASE,URINE NEGATIVE (NEGATIVE); NITRITE,URINE NEGATIVE (NEGATIVE); PROTEIN,URINE 30 mg/dL (NEGATIVE); URINE SPECIFIC GRAVITY 1.014
--- NOTE | 2017-10-08 19:05 | ER Document Report ---
ED Neuro Symptoms/Deficit - General Chief Complaint: Altered Mental Status Stated Complaint: ALTERED MENTAL STATUS Time Seen by Provider: 10/08/17 17:43 Notes: About 4:25 this afternoon, patient was washing dishes and speaking with her mother about cooking dinner of liver when she suddenly became forgetful and could not remember things and had difficulty with her speech, slurring and stuttering. She was not able to recognize family members. She seemed to be confused and disoriented. Patient has not previously had a stroke and not had symptoms like these symptoms in the past. When I am examining the patient, she keeps saying over and over again "I do not know what is going on". She denies any pains in her head or chest at this time. History of multiple myeloma, MS, hypertension. TRAVEL OUTSIDE OF THE [place] IN LAST 30 DAYS: No - Related Data Allergies/Adverse Reactions: ibuprofen [From Motrin] Allergy (Verified 06/24/17 23:55) Penicillins Allergy (Verified 06/24/17 23:55) tramadol [Tramadol] Allergy (Verified 06/24/17 23:55) Past Medical History - Social History Smoking Status: Unknown if Ever Smoked Chew tobacco use (# tins/day): No Frequency of alcohol use: None Drug Abuse: None Family History: Reviewed & Not Pertinent Patient has suicidal ideation: No Patient has homicidal ideation: No - Past Medical History Cardiac Medical History: Reports: Hx Hypercholesterolemia, Hx Hypertension Neurological Medical History: Denies: Hx Cerebrovascular Accident Endocrine Medical History: Reports: Hx Diabetes Mellitus Type 2 Malignancy Medical History: Reports: Hx Bone Cancer - multiple myeloma Musculoskeltal Medical History: Reports Hx Multiple Sclerosis Psychiatric Medical History: Reports: Hx Anxiety, Hx Depression Past Surgical History: Reports: Hx Abdominal Surgery - gastric bypass 08/08, Hx Cholecystectomy, Hx Hysterectomy, Hx Tubal Ligation. Denies: Hx Pacemaker - Immunizations Hx Diphtheria, Pertussis, Tetanus Vaccination: No Review of Systems - Review of Systems Notes: REVIEW OF SYSTEMS: CONSTITUTIONAL : Denies fever. Patient is difficult to get a reliable review of systems because she keeps repeating the same thing over and over again. And , she will not focus and answer the specific questions I asked of her. She does try to follow commands that I asked of her. EENT: Denies eye, ear, nose or mouth or throat pain or other symptoms. CARDIOVASCULAR: Denies chest pain. RESPIRATORY: Denies cough, chest congestion, or shortness of breath. GASTROINTESTINAL: Denies abdominal pain or nausea, vomiting, or diarrhea. GENITOURINARY: Denies difficulty or painful urinating, urinary frequency, blood in urine. MUSCULOSKELETAL: Denies back or neck pain. Denies joint pain or swelling. SKIN: Denies rash or skin lesions. NEUROLOGICAL: Denies LOC. Says she has a headache now, mostly in the front of her head. Denies sensory loss or motor deficits. ALL OTHER SYSTEMS REVIEWED AND NEGATIVE. Physical Exam - Vital signs Vitals: Temp Resp BP Pulse Ox 98.4 F 20 174/102 H 100 10/08/17 17:32 10/08/17 17:32 10/08/17 17:32 10/08/17 17:32 Interpretation: Hypertensive - Mild - Notes Notes: PHYSICAL EXAMINATION: GENERAL: Anxious, repetitively saying "I do not know what is going on". Tries to follow most of the commands and directives I give her. However, does not seem to focus on what I am saying. While at bedside, patient's mother is in the room with us. I asked the patient if she recognized the other person and she looked at her and said yes, but then could not say her name. HEAD: Atraumatic, normocephalic. No facial asymmetry. EYES: Pupils equal round and reactive to light, extraocular movements intact. ENT: oropharynx clear without exudates. Moist mucous membranes. NECK: Normal range of motion, supple. LUNGS: Breath sounds clear and equal bilaterally. HEART: Regular rate and rhythm without murmurs. ABDOMEN: Soft, nontender. No guarding or rebound. No masses. BACK: No tenderness throughout entire back. EXTREMITIES: Normal range of motion without pain. NEUROLOGICAL: Speech is not slurred in my opinion. She speaks very rapidly and is very anxious. Patient was unable to stand and walk. She is able to move all 4 extremities on command, however. PSYCH: Anxious, somewhat panicky acting, confused. SKIN: Warm, dry, no rashes. Course - Re-evaluation Re-evalutation: 10/08/17 19:11 I do have some concerns about whether this entire presentation is emotional and anxiety driven and not physiologic. In any regard, I spoke with Dr. Love, this patient's primary care provider, and he will admit her for observation, to rule out a TIA. - Vital Signs Vital signs: Temp Pulse Resp BP Pulse Ox 97.9 F 17 160/99 H 100 10/08/17 18:11 10/08/17 18:11 10/08/17 18:11 10/08/17 18:11 - Laboratory Result Diagrams: 10/08/17 17:38 10/08/17 17:38 Laboratory results interpreted by me: 10/08/17 10/08/17 10/08/17 17:38 17:38 18:10 Hgb 10.2 L Hct 33.5 L MCV 79 L MCH 24.0 L MCHC 30.6 L RDW 14.8 H Chloride 109 H Carbon Dioxide 20 L BUN 22 H Creatinine 1.50 H Est GFR ( Amer) 44 L Est GFR (Non-Af Amer) 36 L Glucose 220 H Alkaline Phosphatase 188 H Urine Protein 30 H Urine Glucose (UA) 50 H Urine Urobilinogen 2.0 H - Diagnostic Test Radiology reviewed: Image reviewed, Reports reviewed - CT of the head is unremarkable except for microvascular ischemia and atrophy. Nothing acute. No hemorrhage. Radiology results interpreted by me: 10/08/17 19:11 Chest x-ray is normal. - EKG Interpretation by Me EKG shows normal: Sinus rhythm Rate: Normal Rhythm: NSR When compared to previous EKG there are: No significant change Discharge - Discharge Clinical Impression: Altered mental status, TIA (transient ischemic attack), Anxiety Condition: Stable Disposition: ADMITTED OBSERVATION Admitting Provider: [facility] Unit Admitted: Telemetry
[2017-10-08] MEDS ORDERED: LISINOPRIL 10 MG TABLET PO ONE (19:32)
[2017-10-08] MEDS: ASPIRIN/DIPYRIDAMOLE 25-200 MG 1 CAP.SR CPMP.12HR PO SCH (22:19)
--- NOTE | 2017-10-09 08:43 | RADIOLOGY REPORT (SQ) ---
EXAM DESCRIPTION: MRI HEAD WITHOUT COMPLETED DATE/TIME: 10/09/2017 8:24 am REASON FOR STUDY: TIA COMPARISON: CT dated 10/08/2017. TECHNIQUE: Multiplanar imaging includes non-contrasted T1, T2, FLAIR, and diffusion with ADC map seq uences. Images stored on PACS. LIMITATIONS: None. FINDINGS: ANATOMY: No anomalies. Normal vascular flow voids. Pituitary fossa normal. CSF SPACES: Atrophy induced prominence of ventricles and CSF spaces. CEREBRUM: High signal intensity lesions scattered throughout the white matter on FLAIR imaging with d istribution suggesting micro-vascular ischemic changes. No evidence of hemorrhage, mass, or extraaxi al fluid collection. POSTERIOR FOSSA: No signal alteration. No hemorrhage. No edema, masses or mass effect. Internal rosales tory canals, cerebello-pontine angles, mastoids normal. DIFFUSION IMAGING: Negative for acute or sub-acute infarction. ORBITS: No masses. Globes normal. PARANASAL SINUSES: No fluid levels. Mucosa normal. OTHER: No other significant finding. IMPRESSION: ATROPHY AND CHRONIC MICRO-VASCULAR ISCHEMIC CHANGES. OTHERWISE NORMAL MRI OF THE BRAIN W ITHOUT INTRAVENOUS GADOLINIUM CONTRAST. EVIDENCE OF ACUTE STROKE: NO. TECHNICAL DOCUMENTATION: JOB ID: [id number] [employer]- All Rights Reserved
[2017-10-09] MEDS: ASPIRIN/DIPYRIDAMOLE 25-200 MG 1 CAP.SR CPMP.12HR PO SCH ×2 (11:51→22:20)
[2017-10-09] MEDS ORDERED: ACETAMINOPHEN 325 MG TABLET PO PRN (12:39)
[2017-10-09] MEDS ORDERED: CHLORPHENIRAMINE MALEATE 4 MG TABLET PO PRN (12:39)
[2017-10-09] MEDS ORDERED: (PENDING PHARMACY ID) (Vortioxetine Hydrobromide [Trintellix] 10 MG) PO SCH (12:45)
[2017-10-09] MEDS ORDERED: (PENDING PHARMACY ID) (Losartan/Hydrochlorothiazide [Hyzaar 100-25 Tablet] 1 EACH) PO SCH (12:45)
[2017-10-09] MEDS ORDERED: OXYCODONE HCL IR 5 MG TABLET PO PRN (13:39)
[2017-10-09] MEDS ORDERED: HYDRALAZINE HCL 50 MG TABLET PO SCH (14:00)
[2017-10-09] MEDS: HYDRALAZINE HCL 50 MG TABLET PO SCH ×2 (14:07→22:22)
[2017-10-09] MEDS ORDERED: HYDROCHLOROTHIAZIDE 25 MG TABLET PO ONE (14:30)
[2017-10-09] MEDS ORDERED: FOLIC ACID 1 MG TABLET PO ONE (14:30)
[2017-10-09] MEDS ORDERED: SODIUM BICARBONATE 650 MG TABLET PO ONE (14:30)
[2017-10-09] MEDS ORDERED: LOSARTAN POTASSIUM 50 MG TABLET PO ONE (14:30)
--- NOTE | 2017-10-09 18:03 | PDOC H&P ---
History of Present Illness Admission Date/PCP: 10/08/17 19:30 RODERICK MEDRANO MD History of Present Illness: DICKSON THAO is a 52 year old female, she came to the emergency room for evaluation of sudden onset confusion, stuttering of her speech. She has a history of multiple sclerosis, multiple myeloma on active chemotherapy. In the emergency room she was evaluated CT head was done it was negative for any acute pathology, MRI brain was done today, it showed atrophy and chronic microvascular ischemic changes. There is no explanation for patient's symptoms I spoke to neurology at [facility], the neurologist suggested that MRI with contrast should be ordered to rule out encephalitis. MRI with contrast was ordered there was no evidence of active demyelination because of a history of multiple sclerosis a lumbar puncture could not be done because she was given Aggrenox on the day of admission. MRI of the cervical spine was done it showed multilevel degenerative disc disease without acute bone abnormality or high- grade spinal canal stenosis. Past Medical History Cardiac Medical History: Reports: Hyperlipidema, Hypertension Neurological Medical History: Reports: Multiple Sclerosis Endocrine Medical History: Reports: Diabetes Mellitus Type 2 Malignancy Medical History: Reports: Other - Multiple myeloma Psychiatric Medical History: Reports: Depression Hematology: Reports: Anemia Past Surgical History Past Surgical History: Reports: Cholecystectomy, Hysterectomy, Tubal Ligation Social History Smoking Status: Former Smoker Last Time Smoked: 6 years Frequency of Alcohol Use: None Hx Recreational Drug Use: No Drugs: None Hx Prescription Drug Abuse: No Family History Family History: Reviewed & Not Pertinent Parental Family History Reviewed: Yes Children Family History Reviewed: Yes Sibling(s) Family History Reviewed.: Yes Medication/Allergy Home Medications: Acetaminophen [Tylenol 325 mg Tablet] 325 mg PO DAILYP PRN 10/09/17 Amlodipine Besylate [Norvasc 10 mg Tablet] 10 mg PO DAILY 10/09/17 Calcitriol [Rocaltrol 0.25 Mcg Capsule] 0.25 mcg PO DAILY 10/09/17 Chlorpheniramine Maleate [Allergy-Time] 4 mg PO Q6HP PRN 10/09/17 Donepezil HCl [Aricept 5 mg Tablet] 5 mg PO QHS 10/09/17 Doxepin HCl [Silenor] 6 mg PO QHS 10/09/17 Ergocalciferol (Vitamin D2) [Vitamin D2] 50,000 unit PO TOMLNISON@1000 10/09/17 Folic Acid [Folvite 1 mg Tablet] 1 mg PO DAILY 10/09/17 Hydralazine HCl [Apresoline 50 mg Tablet] 50 mg PO TID 10/09/17 Losartan/Hydrochlorothiazide [Hyzaar 100-25 Tablet] 1 each PO DAILY 10/09/17 Metoprolol Tartrate [Lopressor 50 mg Tablet] 50 mg PO Q12 10/09/17 Montelukast Sodium [Singulair 10 mg Tablet] 10 mg PO QHS 10/09/17 Oxycodone HCl 10 mg PO Q6HP PRN 10/09/17 Sodium Bicarbonate [Antacid] 650 mg PO DAILY 10/09/17 Vortioxetine Hydrobromide [Brintellix] 10 mg PO DAILY 10/09/17 Allergies/Adverse Reactions: ibuprofen [From Motrin] Allergy (Verified 06/24/17 23:55) Penicillins Allergy (Verified 06/24/17 23:55) tramadol [Tramadol] Allergy (Verified 06/24/17 23:55) Review of Systems Constitutional: ABSENT: chills, fever(s), headache(s), weight gain, weight loss Eyes: ABSENT: visual disturbances Ears: ABSENT: hearing changes Cardiovascular: ABSENT: chest pain, dyspnea on exertion, edema, orthropnea, palpitations Respiratory: ABSENT: cough, hemoptysis Gastrointestinal: ABSENT: abdominal pain, constipation, diarrhea, hematemesis, hematochezia, nausea, vomiting Genitourinary: ABSENT: dysuria, hematuria Musculoskeletal: ABSENT: joint swelling Integumentary: ABSENT: rash, wounds Neurological: PRESENT: abnormal movements, abnormal speech Psychiatric: ABSENT: anxiety, depression, homidical ideation, suicidal ideation Endocrine: ABSENT: cold intolerance, heat intolerance, menstrual abnormalities, polydipsia, polyuria Hematologic/Lymphatic: ABSENT: easy bleeding, easy bruising, lymphadenopathy Physical Exam Vital Signs: Temp Pulse Resp BP Pulse Ox 98.6 F 112 H 16 119/68 100 10/09/17 16:00 10/09/17 16:00 10/09/17 16:00 10/09/17 16:00 10/09/17 16:00 Intake & Output 10/08/17 10/09/17 10/10/17 06:59 06:59 06:59 Weight 61.2 kg General appearance: PRESENT: no acute distress, well-developed, well-nourished Head exam: PRESENT: atraumatic, normocephalic Eye exam: PRESENT: conjunctiva pink, EOMI, PERRLA Ear exam: PRESENT: normal external ear exam Mouth exam: PRESENT: moist, tongue midline Neck exam: PRESENT: full ROM Respiratory exam: PRESENT: clear to auscultation kody Cardiovascular exam: PRESENT: RRR, +S1, +S2 Vascular exam: PRESENT: normal capillary refill GI/Abdominal exam: PRESENT: normal bowel sounds, soft Rectal exam: PRESENT: deferred Neurological exam: PRESENT: alert, CN II-XII grossly intact Psychiatric exam: PRESENT: appropriate affect, normal mood Skin exam: PRESENT: dry, intact, warm Results Laboratory Results: 10/09/17 10/09/17 10/09/17 00:20 05:50 12:23 Troponin I < 0.012 < 0.012 < 0.012 Impressions: Chest X-Ray 10/08/17 17:47 IMPRESSION: NO ACUTE RADIOGRAPHIC FINDING IN THE CHEST. Head CT 10/08/17 17:48 IMPRESSION: MILD CHRONIC CHANGES OF ATROPHY AND MICROVASCULAR ISCHEMIA. NO ACUTE PROCESS. EVIDENCE OF ACUTE STROKE: NO. Head MRI 10/09/17 00:00 IMPRESSION: ATROPHY AND CHRONIC MICRO-VASCULAR ISCHEMIC CHANGES. OTHERWISE NORMAL MRI OF THE BRAIN WITHOUT INTRAVENOUS GADOLINIUM CONTRAST. EVIDENCE OF ACUTE STROKE: NO. Assessment & Plan - Diagnosis (1) Encephalopathy Is this a current diagnosis for this admission?: Yes Plan: Patient was admitted for evaluation of unspecified encephalopathy (2) Multiple sclerosis Is this a current diagnosis for this admission?: Yes (3) Multiple myeloma not having achieved remission Is this a current diagnosis for this admission?: Yes
--- NOTE | 2017-10-09 18:34 | RADIOLOGY REPORT (SQ) ---
EXAM DESCRIPTION: MRI CERVICAL SPINE WITHOUT COMPLETED DATE/TIME: 10/09/2017 6:01 pm REASON FOR STUDY: tremors COMPARISON: None. TECHNIQUE: Sagittal and Axial imaging includes T1, T2, STIR and gradient echo sequences. LIMITATIONS: None. FINDINGS: ALIGNMENT: Normal. VERTEBRAE: Intact. BONE MARROW: Benign intraosseous hemangioma T2 vertebral body. Otherwise normal. No marrow replaceme nt or reactive changes. DISCS: Multilevel disc desiccation most severe at C5-C6 and C6-C7. HARDWARE: None in the spine. CORD AND BASE OF BRAIN: Normal in size and signal intensity. SOFT TISSUES: No soft tissue masses. C1-C2: No significant spinal stenosis. C2-C3: No significant spinal stenosis or exit foraminal stenosis. C3-C4: No significant spinal stenosis or exit foraminal stenosis. C4-C5: Small central disc osteophyte and bilateral uncinate joint hypertrophy with mild focal effacem ent of the ventral thecal sac and minimal neural foraminal narrowing. C5-C6: Moderate diffuse disc osteophyte with partial effacement of the ventral thecal sac. Additiona l uncinate joint hypertrophy with mild bilateral neural foraminal narrowing. C6-C7: Mild to moderate diffuse disc osteophyte with bilateral uncinate joint hypertrophy. No signif icant spinal canal stenosis or neural foraminal narrowing. C7-T1: No significant spinal stenosis or exit foraminal stenosis. UPPER THORACIC: Incompletely imaged. No significant spinal stenosis or exit foraminal stenosis. OTHER: No other significant finding. IMPRESSION: MULTILEVEL DEGENERATIVE DISC DISEASE DETAILED ABOVE WITHOUT ACUTE OSSEOUS ABNORMALITY OR HIGH-GRADE SPINAL CANAL STENOSIS/NEURAL FORAMINAL NARROWING. TECHNICAL DOCUMENTATION: JOB ID: [id number] [employer]- All Rights Reserved
[2017-10-09 19:17] LABS: INTERNATIONAL RATION (INR) 0.86; PARTIAL THROMBOPLASTIN TIME 30.1 SEC (23.5-35.8); PROTHROMBIN TIME 12.4 SEC (11.4-15.4)
--- NOTE | 2017-10-09 21:04 | RADIOLOGY REPORT (SQ) ---
EXAM DESCRIPTION: MRI HEAD COMBO COMPLETED DATE/TIME: 10/09/2017 8:52 pm REASON FOR STUDY: MS D46.0 REFRACTORY ANEMIA WITHOUT RING SIDEROBLASTS, SO STATED COMPARISON: Earlier the same day. TECHNIQUE: Multiplanar imaging includes noncontrasted T1, T2, FLAIR, diffusion with ADC map and post gadolinium contrast T1 sequences. Images stored on PACS. CONTRAST TYPE AND DOSE: 7 mL Multihance. RENAL FUNCTION: GFR 44 LIMITATIONS: None. FINDINGS: Periventricular foci of increased signal on FLAIR sequence which do not enhance, several w ith perpendicular orientation to the ventricles. Pattern is nonspecific but consistent with history of multiple sclerosis. IMPRESSION: No evidence of active demyelination. EVIDENCE OF ACUTE STROKE: NO. TECHNICAL DOCUMENTATION: JOB ID: [id number] [employer]- All Rights Reserved
[2017-10-09] MEDS ORDERED: (PENDING PHARMACY ID) (Doxepin Hcl [Silenor] 6 MG) PO SCH (22:00)
[2017-10-09] MEDS ORDERED: MONTELUKAST SODIUM 10 MG TABLET PO SCH (22:00)
[2017-10-09] MEDS ORDERED: DONEPEZIL HCL 5 MG TABLET PO SCH (22:00)
[2017-10-09] MEDS: METOPROLOL TARTRATE 50 MG TABLET PO SCH (22:21)
[2017-10-09] MEDS ORDERED: NORMAL SALINE 1000 ML 1,000 ML IV ONE (23:45)
[2017-10-09] MEDS ORDERED: DEXTROSE 40% GEL 15 GM TUBE X 2 PO PRN (23:51)
[2017-10-09] MEDS ORDERED: DEXTROSE 50%-WATER SYRINGE 12.5 GM/25 ML DOSE IV PRN (23:51)
[2017-10-09] MEDS ORDERED: GLUCAGON,HUMAN RECOMB 1 MG INJ IM PRN (23:51)
[2017-10-09] MEDS ORDERED: DEXTROSE 50%-WATER SYRINGE 25 GM/50 ML DOSE IV PRN (23:51)
[2017-10-09] MEDS ORDERED: DEXTROSE 40% GEL 15 GM TUBE PO PRN (23:51)
[2017-10-09] MEDS ORDERED: INSULIN LISPRO 100 UNIT/ML 3 ML VIAL SUBCUT PRN (23:51)
[2017-10-10] MEDS: HYDRALAZINE HCL 50 MG TABLET PO SCH ×2 (06:04→14:56)
--- NOTE | 2017-10-10 09:35 | Physician Advisory Note ---
Physician Advisor ProgressNote .: Pursuant to the plan for Martha Child, I have reviewed the medical record for this patient. Physician Advisor Statement: Please consider documenting, if you agree: 1. "AMS w/ [signs/sx], suspect due to ": ("Acute metabolic encephalopathy due to ____"? "Acute hypoxic encephalopathy due to "? "Acute cerebral ischemia due to atherosclerotic cerebrovascular disease + bradypnea [&/or ]"? Or a specific psych cause?) 2. Medical necessity: Are you concerned about her frequent bradypnea, or other ongoing clinical issue? If so, please document this, & may then support change to Inpatient status. If not, please discharge to outpatient f/u. Thanks for your help! CK
[2017-10-10] MEDS ORDERED: SODIUM BICARBONATE 650 MG TABLET PO SCH (10:00)
[2017-10-10] MEDS ORDERED: AMLODIPINE BESYLATE 10 MG TABLET PO SCH (10:00)
[2017-10-10] MEDS ORDERED: LOSARTAN POTASSIUM 50 MG TABLET PO SCH (10:00)
[2017-10-10] MEDS ORDERED: HYDROCHLOROTHIAZIDE 25 MG TABLET PO SCH (10:00)
[2017-10-10] MEDS ORDERED: FOLIC ACID 1 MG TABLET PO SCH (10:00)
[2017-10-10] MEDS ORDERED: CALCITRIOL 0.25 MCG CAPSULE PO SCH (10:00)
[2017-10-10] MEDS: METOPROLOL TARTRATE 50 MG TABLET PO SCH (10:29)
[2017-10-10] MEDS: ASPIRIN/DIPYRIDAMOLE 25-200 MG 1 CAP.SR CPMP.12HR PO SCH (10:29)
--- NOTE | 2017-10-10 16:19 | PDOC DISCHARGE SUMMARY ---
General - Admit/Disc Date/PCP Admission Date/Primary Care Provider: 10/08/17 19:30 RODERICK MEDRANO MD Discharge Date: 10/10/17 - Discharge Diagnosis (1) Encephalopathy Is this a current diagnosis for this admission?: Yes (2) Multiple sclerosis Is this a current diagnosis for this admission?: Yes (3) Multiple myeloma not having achieved remission Is this a current diagnosis for this admission?: Yes - Additional Information Home Medications: Acetaminophen [Tylenol 325 mg Tablet] 325 mg PO DAILYP PRN 10/09/17 Amlodipine Besylate [Norvasc 10 mg Tablet] 10 mg PO DAILY 10/09/17 Calcitriol [Rocaltrol 0.25 mcg Capsule] 0.25 mcg PO DAILY 10/09/17 Chlorpheniramine Maleate [Allergy-Time 4 mg Tablet] 4 mg PO Q6HP PRN 10/09/17 Donepezil HCl [Aricept 5 mg Tablet] 5 mg PO QHS 10/09/17 Doxepin HCl [Silenor] 6 mg PO QHS 10/09/17 Ergocalciferol (Vitamin D2) [Vitamin D2] 50,000 unit PO TOMLINSON@1000 10/09/17 Folic Acid [Folvite 1 mg Tablet] 1 mg PO DAILY 10/09/17 Hydralazine HCl [Apresoline 50 mg Tablet] 50 mg PO TID 10/09/17 Losartan/Hydrochlorothiazide [Hyzaar 100-25 Tablet] 1 each PO DAILY 10/09/17 Metoprolol Tartrate [Lopressor 50 mg Tablet] 50 mg PO Q12 10/09/17 Montelukast Sodium [Singulair 10 mg Tablet] 10 mg PO QHS 10/09/17 Oxycodone HCl 10 mg PO Q6HP PRN 10/09/17 Sodium Bicarbonate [Antacid] 650 mg PO DAILY 10/09/17 Vortioxetine Hydrobromide [Trintellix] 10 mg PO DAILY 10/09/17 History of Present Illness History of Present Illness: DICKSON THAO is a 52 year old female, she came to the emergency room for evaluation of sudden onset confusion, stuttering of her speech. She has a history of multiple sclerosis, multiple myeloma on active chemotherapy. In the emergency room she was evaluated CT head was done it was negative for any acute pathology, MRI brain was done today, it showed atrophy and chronic microvascular ischemic changes. There is no explanation for patient's symptoms I spoke to neurology at [facility], the neurologist suggested that MRI with contrast should be ordered to rule out encephalitis. MRI with contrast was ordered there was no evidence of active demyelination because of a history of multiple sclerosis a lumbar puncture could not be done because she was given Aggrenox on the day of admission. MRI of the cervical spine was done it showed multilevel degenerative disc disease without acute bone abnormality or high- grade spinal canal stenosis. Hospital Course Hospital Course: She was admitted for the management of unspecified, she was encephalopathy admitted for observation, MRI of the brain was done with contrast, it did not show any acute pathology. I spoke to [facility] neurology, they suggests that patient could be discharged to follow outpatient Physical Exam Vital Signs: Temp Pulse Resp BP Pulse Ox 98.6 F 93 18 130/67 H 100 10/10/17 15:48 10/10/17 15:48 10/10/17 15:48 10/10/17 15:48 10/10/17 15:48 Intake & Output 10/09/17 10/10/17 10/11/17 06:59 06:59 06:59 Intake Total 1647 474 Balance 1647 474 Weight 61.2 kg General appearance: PRESENT: no acute distress Head exam: PRESENT: atraumatic, normocephalic Eye exam: PRESENT: PERRLA Neck exam: PRESENT: full ROM Respiratory exam: PRESENT: clear to auscultation kody Cardiovascular exam: PRESENT: RRR, +S1, +S2 Vascular exam: PRESENT: normal capillary refill GI/Abdominal exam: PRESENT: normal bowel sounds, soft Rectal exam: PRESENT: deferred Neurological exam: PRESENT: alert Psychiatric exam: PRESENT: appropriate affect, normal mood Skin exam: PRESENT: dry, intact, warm Results Laboratory Results: 10/09/17 10/09/17 10/09/17 00:20 05:50 12:23 Troponin I < 0.012 < 0.012 < 0.012 Impressions: Chest X-Ray 10/08/17 17:47 IMPRESSION: NO ACUTE RADIOGRAPHIC FINDING IN THE CHEST. Head CT 10/08/17 17:48 IMPRESSION: MILD CHRONIC CHANGES OF ATROPHY AND MICROVASCULAR ISCHEMIA. NO ACUTE PROCESS. EVIDENCE OF ACUTE STROKE: NO. Cervical Spine MRI 10/09/17 00:00 IMPRESSION: MULTILEVEL DEGENERATIVE DISC DISEASE DETAILED ABOVE WITHOUT ACUTE OSSEOUS ABNORMALITY OR HIGH-GRADE SPINAL CANAL STENOSIS/NEURAL FORAMINAL NARROWING. Head MRI 10/09/17 00:00 IMPRESSION: No evidence of active demyelination. EVIDENCE OF ACUTE STROKE: NO.
[2017-10-10 16:28] VITALS: BP 119/68
--- NOTE | 2017-10-11 09:25 | EKG REPORT ---
SEVERITY:- NORMAL ECG - SINUS RHYTHM : Confirmed by: Dinah Winston 11-Oct-2017 09:25:25
[2017-10-15] MEDS ORDERED: ERGOCALCIFEROL (VITAMIN D2) 50000 UNIT (1.25 MG) CAPSULE PO SCH (10:00)
== END 2017-10-10 16:53 | disposition home or self-care (01) ==
LOC: ER 17:26 → EH 19:30 → 3S 10-09 15:32
PROVIDERS: ADMIT Internal Medicine; ATTEND Internal Medicine
DX: G93.40 Encephalopathy, unspecified (principal); G35 Multiple sclerosis; C90.00 Multiple myeloma not having achieved remission; R47.81 Slurred speech; R47.82 Fluency disorder in conditions classified elsewhere; E11.9 Type 2 diabetes mellitus without complications; E78.5 Hyperlipidemia, unspecified; I10 Essential (primary) hypertension; R51 Headache; Z79.899 Other long term (current) drug therapy; Z90.49 Acquired absence of other specified parts of digestive tract; Z87.891 Personal history of nicotine dependence; Z98.84 Bariatric surgery status; R26.2 Difficulty in walking, not elsewhere classified
CPT/HCPCS: 93005; 99285; 36415 ×2; 87040; 82962 ×2; 85025; 85610; 85730; 80053; 81001; 84484; 70553; 70551; 72141; 71045; 70450; 93010; G0378 ×2; A9270 ×14; J7030; J1815

== ENCOUNTER → 2017-11-07 | Outpatient (CLI) | payer MEDICARE, MEDICAID ==
[2017-11-07 13:39] LABS: ABSOLUTE LYMPHOCYTES (AUTO) 1.9 10^3/uL (0.5-4.7); ABSOLUTE MONOCYTES (AUTO) 0.4 10^3/uL (0.1-1.4); ABSOLUTE NEUT (AUTO) 2.6 10^3/uL (1.7-8.2); BASOPHILS % (AUTO) 0.6 % (0-2); EOSINOPHILS % (AUTO) 0.2 % (0-6); HEMATOCRIT 31.5 % (36.0-47.0); HEMOGLOBIN 9.7 g/dL (12.0-15.5); LYMPHOCYTES % (AUTO) 37.9 % (13-45); MEAN CORPUSCULAR HEMOGLOBIN 24.3 pg (27.0-33.4); MEAN CORPUSCULAR HGB CONC 30.9 g/dL (32.0-36.0); MEAN CORPUSCULAR VOLUME 79 fl (80-97); MONOCYTES % (AUTO) 7.7 % (3-13); PLATELET COUNT 200 10^3/uL (150-450); RED CELL DISTRIBUTION WIDTH 15.7 % (11.5-14.0); SEGMENTED NEUTROPHILS % (AUTO) 53.6 % (42-78); TOTAL CELLS COUNTED % (AUTO) 100 %; WHITE BLOOD COUNT 4.9 10^3/uL (4.0-10.5)
[2017-11-07 13:56] LABS: APPEARANCE,URINE SLIGHTLY-CLOUDY; BILIRUBIN,URINE NEGATIVE (NEGATIVE); COLOR,URINE YELLOW; GLUCOSE, URINE NEGATIVE (NEGATIVE); KETONES,URINE NEGATIVE (NEGATIVE); LEUKOCYTE ESTERASE,URINE NEGATIVE (NEGATIVE); NITRITE,URINE NEGATIVE (NEGATIVE); PROTEIN,URINE 100 mg/dL (NEGATIVE); URINE SPECIFIC GRAVITY 1.015; UROBILINOGEN,URINE NEGATIVE mg/dL (<2.0)
[2017-11-07 13:58] LABS: ALANINE AMINOTRANSFERASE 36 U/L (9-52); ALKALINE PHOSPHATASE 165 U/L (38-126); ANION GAP 8 (5-19); ASPARTATE AMINO TRANSFERASE 29 U/L (14-36); BILIRUBIN,DIRECT 0.4 mg/dL (0.0-0.4); BILIRUBIN,TOTAL 0.5 mg/dL (0.2-1.3); BLOOD UREA NITROGEN 18 mg/dL (7-20); CALCIUM 9.2 mg/dL (8.4-10.2); CARBON DIOXIDE 24 mmol/L (22-30); CHLORIDE 108 mmol/L (98-107); CHOLESTEROL 217.52 mg/dL (0-200); GLUCOSE 197 mg/dL (75-110); POTASSIUM 4.9 mmol/L (3.6-5.0); SODIUM 140.2 mmol/L (137-145); TOTAL PROTEIN 6.4 g/dL (6.3-8.2); TRIGLYCERIDES 87 mg/dL (<150); URIC ACID 7.2 mg/dL (2.5-7.5)
[2017-11-07 14:09] LABS: DIRECT LDL 115 mg/dL (<100)
[2017-11-07 14:15] LABS: UR PRO/CREAT RATIO RESULT 0.8 mg/mg (0.0-0.2); URINE PROTEIN 90.1 mg/dL (<12)
[2017-11-07 14:26] LABS: ANION GAP 8 (5-19); BLOOD UREA NITROGEN 18 mg/dL (7-20); CALCIUM 9.2 mg/dL (8.4-10.2); CARBON DIOXIDE 24 mmol/L (22-30); CHLORIDE 108 mmol/L (98-107); GLUCOSE 197 mg/dL (75-110); POTASSIUM 4.9 mmol/L (3.6-5.0); SODIUM 140.2 mmol/L (137-145)
[2017-11-09 12:38] LABS: CREATININE URINE 113.5 mg/dL (Not Estab.)
[2017-11-09 13:35] LABS: MICROALBUMIN URINE 560.3 ug/mL (Not Estab.)
== END ==
LOC: OD 12:27
PROVIDERS: ATTEND Internal Medicine Nephrology
DX: E11.42 Type 2 diabetes mellitus with diabetic polyneuropathy (principal); N18.3 Chronic kidney disease, stage 3 (moderate); E55.9 Vitamin D deficiency, unspecified; N25.81 Secondary hyperparathyroidism of renal origin; E11.29 Type 2 diabetes mellitus with other diabetic kidney complication
CPT/HCPCS: 36415; 80048; 80053; 80061; 81001; 82043; 82306; 82570; 83036; 83970; 84156; 84436; 84443; 84550; 85025

== ENCOUNTER → 2017-12-06 | Outpatient (CLI) | payer MEDICARE, MEDICAID ==
--- NOTE | 2017-12-07 13:31 | WOMENS IMAGING REPORT ---
EXAM DESCRIPTION: 3D SCREENING MAMMO BILAT COMPLETED DATE/TIME: 12/06/2017 9:49 am REASON FOR STUDY: SCREENING MAMMO Z12.31 ENCNTR SCREEN MAMMOGRAM FOR MALIGNANT NEOPLASM OF JERMAINE COMPARISON: 2012 to 2016 TECHNIQUE: Standard craniocaudal and mediolateral oblique views of each breast recorded using digita l acquisition and breast tomosynthesis. LIMITATIONS: None. FINDINGS: No masses, calcifications or architectural distortion. No areas of suspicion. Read with the assistance of CAD. [facility] - R2 Cenova Version 1.3 .[facility] - R2 Cenova Version 1.3 .[facility] - R2 Cenova Version 2.4 .[facility] [place] R2 Cenova Version 2.4 .[facility] - R2 Metal Furniture Polisher Version 9.2 IMPRESSION: NORMAL MAMMOGRAM. BIRADS 1. BREAST DENSITY: b. There are scattered areas of fibroglandular density. BIRAD: 1 NEGATIVE RECOMMENDATION: ROUTINE SCREENING COMMENT: The patient has been notified of the results by letter per SA requirements. Additional no tification policies are in place for contacting patient with suspicious or incomplete findings. Quality ID #[id number]: The [employer] recommends an annual screening mammogram for women aged 40 years or over. This facility utilizes a reminder system to ensure that all patients receive reminder letters, and/or direct phone calls for appointments. This includes reminders for routine scr eening mammograms, diagnostic mammograms, or other Breast Imaging Interventions when appropriate. Th is patient will be placed in the appropriate reminder system. The [employer] (ACR) has developed recommendations for screening MRI of the breast s in certain patient populations, to be used in conjunction with mammography. Breast MRI surveillanc e may be appropriate for women with more than 20% lifetime risk of developing breast cancer as deter mined by genetic testing, significant family history of the disease, or history of mantle radiation f or Hodgkins Disease. ACR Practice Guidelines 2008. DBT Technology DBT is a type of tomographic mammography. With conventional mammography, overlapping breast tissue ma y make lesions difficult to detect, even with good compression. DBT uses an x-ray tube that rotates a round the breast, taking images at different angles. These images are then combined to create thin sl ices of the breast that the radiologist can view as a 3D reconstruction. The Wrapp unit can perform full-field digital mammograms (2D imaging); or DBT (3D imaging); or both, in a combination mode that quickly performs both the mammogram and the tomosynthesis scan while the breast is still compressed. PQRS 6045F: Fluoroscopic imaging is not utilized for breast tomosynthesis. TECHNICAL DOCUMENTATION: FINDING NUMBER: (1) ASSESSMENT: (1) JOB ID: [id number] [employer]- All Rights Reserved Reading location - IP/workstation name: [email or web address]
== END ==
LOC: WI 09:29
PROVIDERS: ATTEND Internal Medicine
DX: Z12.31 Encounter for screening mammogram for malignant neoplasm of breast (principal)
CPT/HCPCS: 77063; 77067

== ENCOUNTER → 2018-02-13 | Outpatient (CLI) | payer MEDICARE, MEDICAID ==
[2018-02-13 12:42] LABS: ABSOLUTE EOSINOPHILS # (AUTO) 0.1 10^3/uL (0.0-0.6); ABSOLUTE LYMPHOCYTES (AUTO) 1.7 10^3/uL (0.5-4.7); ABSOLUTE MONOCYTES (AUTO) 0.3 10^3/uL (0.1-1.4); ABSOLUTE NEUT (AUTO) 3.2 10^3/uL (1.7-8.2); BASOPHILS % (AUTO) 0.3 % (0-2); HEMATOCRIT 31.9 % (36.0-47.0); HEMOGLOBIN 9.9 g/dL (12.0-15.5); LYMPHOCYTES % (AUTO) 31.9 % (13-45); MEAN CORPUSCULAR HEMOGLOBIN 24.1 pg (27.0-33.4); MEAN CORPUSCULAR HGB CONC 31.1 g/dL (32.0-36.0); MEAN CORPUSCULAR VOLUME 78 fl (80-97); MONOCYTES % (AUTO) 6.4 % (3-13); PLATELET COUNT 261 10^3/uL (150-450); RED BLOOD COUNT 4.11 10^6/uL (3.72-5.28); RED CELL DISTRIBUTION WIDTH 14.1 % (11.5-14.0); SEGMENTED NEUTROPHILS % (AUTO) 60.4 % (42-78); TOTAL CELLS COUNTED % (AUTO) 100 %; WHITE BLOOD COUNT 5.2 10^3/uL (4.0-10.5)
[2018-02-13 13:01] LABS: ALBUMIN 4.6 g/dL (3.5-5.0); ANION GAP 14 (5-19); BLOOD UREA NITROGEN 36 mg/dL (7-20); CALCIUM 9.7 mg/dL (8.4-10.2); CARBON DIOXIDE 20 mmol/L (22-30); CHLORIDE 107 mmol/L (98-107); GLUCOSE 229 mg/dL (75-110); PHOSPHORUS 4.3 mg/dL (2.5-4.5); POTASSIUM 5.4 mmol/L (3.6-5.0); SODIUM 141.3 mmol/L (137-145)
[2018-02-13 13:30] LABS: APPEARANCE,URINE CLEAR; BILIRUBIN,URINE NEGATIVE (NEGATIVE); COLOR,URINE YELLOW; GLUCOSE, URINE >=500 mg/dL (NEGATIVE); KETONES,URINE NEGATIVE (NEGATIVE); LEUKOCYTE ESTERASE,URINE NEGATIVE (NEGATIVE); NITRITE,URINE NEGATIVE (NEGATIVE); PROTEIN,URINE 30 mg/dL (NEGATIVE); URINE SPECIFIC GRAVITY 1.015; UROBILINOGEN,URINE NEGATIVE mg/dL (<2.0)
[2018-02-13 13:55] LABS: UR PRO/CREAT RATIO RESULT 0.3 mg/mg (0.0-0.2); URINE CREATININE 91.1 mg/dL (15-278); URINE PROTEIN 29.9 mg/dL (<12)
== END ==
LOC: OD 11:40
PROVIDERS: ATTEND Internal Medicine Nephrology
DX: E11.22 Type 2 diabetes mellitus with diabetic chronic kidney disease (principal); N18.3 Chronic kidney disease, stage 3 (moderate); E11.29 Type 2 diabetes mellitus with other diabetic kidney complication; D63.1 Anemia in chronic kidney disease; N25.81 Secondary hyperparathyroidism of renal origin
CPT/HCPCS: 36415; 80048; 81001; 82040; 82306; 82570; 83970; 84100; 84156; 85025

== ENCOUNTER → 2018-06-14 | Outpatient (CLI) | payer MEDICARE, MEDICAID ==
[2018-06-14 15:58] LABS: ABSOLUTE EOSINOPHILS # (AUTO) 0.1 10^3/uL (0.0-0.6); ABSOLUTE LYMPHOCYTES (AUTO) 1.1 10^3/uL (0.5-4.7); ABSOLUTE MONOCYTES (AUTO) 0.3 10^3/uL (0.1-1.4); ABSOLUTE NEUT (AUTO) 3.7 10^3/uL (1.7-8.2); BASOPHILS % (AUTO) 0.2 % (0-2); HEMATOCRIT 34.5 % (36.0-47.0); HEMOGLOBIN 10.5 g/dL (12.0-15.5); LYMPHOCYTES % (AUTO) 21.2 % (13-45); MEAN CORPUSCULAR HEMOGLOBIN 23.4 pg (27.0-33.4); MEAN CORPUSCULAR HGB CONC 30.4 g/dL (32.0-36.0); MEAN CORPUSCULAR VOLUME 77 fl (80-97); MONOCYTES % (AUTO) 6.5 % (3-13); PLATELET COUNT 221 10^3/uL (150-450); RED BLOOD COUNT 4.49 10^6/uL (3.72-5.28); RED CELL DISTRIBUTION WIDTH 14.5 % (11.5-14.0); SEGMENTED NEUTROPHILS % (AUTO) 70.1 % (42-78); TOTAL CELLS COUNTED % (AUTO) 100 %; WHITE BLOOD COUNT 5.3 10^3/uL (4.0-10.5)
[2018-06-14 16:16] LABS: ALANINE AMINOTRANSFERASE 22 U/L (9-52); ALBUMIN 4.2 g/dL (3.5-5.0); ALKALINE PHOSPHATASE 160 U/L (38-126); ANION GAP 13 (5-19); ASPARTATE AMINO TRANSFERASE 13 U/L (14-36); BILIRUBIN,DIRECT 0.2 mg/dL (0.0-0.4); BILIRUBIN,TOTAL 0.4 mg/dL (0.2-1.3); BLOOD UREA NITROGEN 24 mg/dL (7-20); CALCIUM 9.2 mg/dL (8.4-10.2); CARBON DIOXIDE 18 mmol/L (22-30); CHLORIDE 106 mmol/L (98-107); CHOLESTEROL 227.38 mg/dL (0-200); POTASSIUM 5.8 mmol/L (3.6-5.0); SODIUM 136.5 mmol/L (137-145); TOTAL PROTEIN 6.9 g/dL (6.3-8.2); TRIGLYCERIDES 139 mg/dL (<150)
[2018-06-14 16:26] LABS: APPEARANCE,URINE SLIGHTLY-CLOUDY; BILIRUBIN,URINE NEGATIVE (NEGATIVE); COLOR,URINE YELLOW; GLUCOSE, URINE >=500 mg/dL (NEGATIVE); KETONES,URINE NEGATIVE (NEGATIVE); LEUKOCYTE ESTERASE,URINE NEGATIVE (NEGATIVE); NITRITE,URINE NEGATIVE (NEGATIVE); PROTEIN,URINE 30 mg/dL (NEGATIVE); URINE SPECIFIC GRAVITY 1.015; UROBILINOGEN,URINE NEGATIVE mg/dL (<2.0)
[2018-06-14 16:27] LABS: DIRECT LDL 114 mg/dL (<100)
[2018-06-14 16:31] LABS: FREE T4 (FREE THYROXINE) 0.94 ng/dL (0.78-2.19)
[2018-06-14 16:36] LABS: GLUCOSE 408 mg/dL (75-110)
[2018-06-14 16:45] LABS: THYROID STIMULATING HORMONE 1.44 uIU/mL (0.47-4.68)
[2018-06-16 11:37] LABS: CREATININE URINE 126.2 mg/dL (Not Estab.); MICROALBUMIN URINE 191.5 ug/mL (Not Estab.)
== END ==
LOC: OD 14:46
PROVIDERS: ATTEND Internal Medicine
DX: E11.42 Type 2 diabetes mellitus with diabetic polyneuropathy (principal)
CPT/HCPCS: 36415; 80053; 80061; 81001; 82043; 82570; 83036; 84439; 84443; 84550; 85025

== ENCOUNTER 2018-11-09 14:41 | Emergency (ER) | payer MEDICARE, MEDICAID ==
[2018-11-09] MEDS ORDERED: SODIUM POLYSTYRENE SULFONATE 15 GM/60 ML PO ONE (15:29)
[2018-11-09] MEDS ORDERED: DEXTROSE 50%-WATER 25 GM/50 ML DISP.SYRIN IV ONE (15:29)
[2018-11-09] MEDS ORDERED: CALCIUM GLUCONATE 1000 MG/10 ML INJ IV ONE (15:29)
[2018-11-09] MEDS ORDERED: INSULIN REG, HUMAN 100 UNIT/ML 3 ML VIAL (PYX) IV ONE (15:29)
--- NOTE | 2018-11-09 15:31 | ER Document Report ---
ED Medical Screen (RME) - General Chief Complaint: Abnormal Lab Results Stated Complaint: ABNORMAL LABS Time Seen by Provider: 11/09/18 15:23 Primary Care Provider: DEREK HALEY MD [Primary Care Provider] - Follow up as needed TRAVEL OUTSIDE OF THE [place] IN LAST 30 DAYS: No - HPI Notes: 11/09/18 15:30 Patient is a 53-year-old female that presents to the emergency department for chief complaint of hyperkalemia. Patient has stage III CKD and sees Dr. Haley she is not on dialysis. Dr. Haley orders outpatient lab work prior to patient being seen in the office. Today her outpatient labs showed hyperkalemia. With a potassium of 6.4. Patient states today she feels normal. She does states she has had intermittent chest pains that are on the left side and last for 10-15 minutes at a time, these are relieved with Tylenol. She has not had any of this chest pain since last week. Currently she is asymptomatic. ROS: GENERAL: Denies fever of chills CV: Denies chest pain PHYSICAL EXAMINATION: GENERAL: Well-appearing, well-nourished and in no acute distress. HEAD: Atraumatic, normocephalic. EYES: Pupils equal round extraocular movements intact, conjunctiva are normal. ENT: Nares patent NECK: Normal range of motion LUNGS: No respiratory distress Musculoskeletal: Normal range of motion NEUROLOGICAL: Normal speech, normal gait. PSYCH: Normal mood, normal affect. MDM: Patient seen and examined for rapid initial assessment. Vital signs reviewed. A comprehensive ED assessment and evaluation of the patient, analysis of test results and completion of the medical decision making process will be conducted by additional ED providers. - Related Data Allergies/Adverse Reactions: ibuprofen [From Motrin] Allergy (Verified 11/09/18 15:20) Penicillins Allergy (Verified 11/09/18 15:20) tramadol [Tramadol] Allergy (Verified 11/09/18 15:20) Past Medical History - Social History Chew tobacco use (# tins/day): No Frequency of alcohol use: None Drug Abuse: None - Past Medical History Cardiac Medical History: Reports: Hx Hypercholesterolemia, Hx Hypertension Denies: Hx Heart Attack Pulmonary Medical History: Denies: Hx Asthma, Hx Bronchitis, Hx COPD, Hx Pneumonia, Hx Tuberculosis Neurological Medical History: Denies: Hx Cerebrovascular Accident, Hx Seizures Endocrine Medical History: Reports: Hx Diabetes Mellitus Type 2 Renal/ Medical History: Denies: Hx Peritoneal Dialysis Malignancy Medical History: Reports: Hx Bone Cancer - multiple myeloma Musculoskeltal Medical History: Denies Hx Arthritis, Reports Hx Multiple Sclerosis Psychiatric Medical History: Reports: Hx Anxiety, Hx Depression Past Surgical History: Reports: Hx Abdominal Surgery - gastric bypass 08/08, Hx Cholecystectomy, Hx Hysterectomy, Hx Tubal Ligation. Denies: Hx Pacemaker - Immunizations Hx Diphtheria, Pertussis, Tetanus Vaccination: No History of Influenza Vaccine for 05/2017 - 10/2017 Season: Yes Influenza Administration Date for 05/2017 - 10/2017 Season: 05/28/17 Physical Exam - Vital signs Vitals: Temp Pulse Resp BP 98.9 F 94 14 182/106 H 11/09/18 14:58 11/09/18 14:58 11/09/18 14:58 11/09/18 14:58 Course - Vital Signs Vital signs: Temp Pulse Resp BP Pulse Ox 98.9 F 94 14 182/106 H 11/09/18 14:58 11/09/18 14:58 11/09/18 14:58 11/09/18 14:58 Doctor's Discharge - Discharge Referrals: DEREK HALEY MD [Primary Care Provider] - Follow up as needed
[2018-11-09] MEDS ORDERED: ACETAMINOPHEN 325 MG TABLET PO ONE (17:59)
[2018-11-09] MEDS ORDERED: NORMAL SALINE 1000 ML 1,000 ML IV ONE (17:59)
--- NOTE | 2018-11-09 18:17 | RADIOLOGY REPORT (SQ) ---
EXAM DESCRIPTION: CT HEAD WITHOUT COMPLETED DATE/TIME: 11/09/2018 5:46 pm REASON FOR STUDY: headache COMPARISON: 1. MRI brain 10/09/[address] 10/08/2017 TECHNIQUE: Axial images acquired through the brain without intravenous contrast. Images reviewed wi th bone, brain and subdural windows. Additional sagittal and coronal reconstructions were generated. Images stored on PACS. All CT scanners at this facility use dose modulation, iterative reconstruction, and/or weight based d osing when appropriate to reduce radiation dose to as low as reasonably achievable (ALARA). [facility]: Dose Right [facility]: CareDose [facility]: Dose Right [facility]: Teradose 4D [facility]: Smart Rudder RADIATION DOSE: CT Rad equipment meets quality standard of care and radiation dose reduction techniq ues were employed. CTDIvol: 53.2 mGy. DLP: 1097 mGy-cm. mGy. LIMITATIONS: None. FINDINGS: VENTRICLES: Normal size and contour. CEREBRUM: No masses. No hemorrhage. No midline shift. No evidence for acute infarction. Re- demons tration of periventricular hypoattenuation, stable in the study interval. CEREBELLUM: No masses. No hemorrhage. No alteration of density. No evidence for acute infarction. EXTRAAXIAL SPACES: No fluid collections. No masses. ORBITS AND GLOBE: No intra- or extraconal masses. Normal contour of globe without masses. CALVARIUM: No fracture. PARANASAL SINUSES: No fluid or mucosal thickening. SOFT TISSUES: No mass or hematoma. OTHER: No other significant finding. IMPRESSION: Stable CT appearance of the brain. No evidence of acute intracranial abnormality. EVIDENCE OF ACUTE STROKE: NO. COMMENT: Quality ID # [id number]: Final reports with documentation of one or more dose reduction techniques (e.g., Automated exposure control, adjustment of the mA and/or kV according to patient size, use of iterative reconstruction technique) TECHNICAL DOCUMENTATION: JOB ID: [id number] [employer]- All Rights Reserved Reading location - IP/workstation name: [email or web address]
[2018-11-09 20:35] LABS: HEMATOCRIT 38.7 % (36.0-47.0); HEMOGLOBIN 11.9 g/dL (12.0-15.5); MEAN CORPUSCULAR HEMOGLOBIN 23.9 pg (27.0-33.4); MEAN CORPUSCULAR HGB CONC 30.7 g/dL (32.0-36.0); MEAN CORPUSCULAR VOLUME 78 fl (80-97); PLATELET COUNT 261 10^3/uL (150-450); RED BLOOD COUNT 4.98 10^6/uL (3.72-5.28); RED CELL DISTRIBUTION WIDTH 17.3 % (11.5-14.0); WHITE BLOOD COUNT 5.8 10^3/uL (4.0-10.5)
[2018-11-09 20:49] LABS: ALANINE AMINOTRANSFERASE < 6 U/L (9-52); ALBUMIN 4.7 g/dL (3.5-5.0); ALKALINE PHOSPHATASE 138 U/L (38-126); ANION GAP 14 (5-19); ASPARTATE AMINO TRANSFERASE 24 U/L (14-36); BILIRUBIN,DIRECT 0.3 mg/dL (0.0-0.4); BILIRUBIN,TOTAL 0.5 mg/dL (0.2-1.3); BLOOD UREA NITROGEN 23 mg/dL (7-20); CARBON DIOXIDE 19 mmol/L (22-30); CHLORIDE 105 mmol/L (98-107); GLUCOSE 89 mg/dL (75-110); POTASSIUM 5.6 mmol/L (3.6-5.0); SODIUM 137.5 mmol/L (137-145); TOTAL PROTEIN 7.4 g/dL (6.3-8.2)
[2018-11-09 20:51] LABS: ABSOLUTE LYMPHOCYTES# (MANUAL) 2.8 10^3/uL (0.5-4.7); ABSOLUTE MONOCYTES # (MANUAL) 0.1 10^3/uL (0.1-1.4); ABSOLUTE NEUTROPHILS# (MANUAL) 2.8 10^3/uL (1.7-8.2); BASOPHILS % (MANUAL) 0 % (0-2); EOSINOPHILS % (MANUAL) 1 % (0-6); LYMPHOCYTES % (MANUAL) 49 % (13-45); MONOCYTES % (MANUAL) 2 % (3-13); SEGMENTED NEUTROPHILS % (MAN) 48 % (42-78); TOTAL CELLS COUNTED 100
[2018-11-09 20:52] LABS: ANISOCYTOSIS 1+; PLATELET COMMENT ADEQUATE
[2018-11-09] MEDS ORDERED: PATIROMER 8.4 GM SUSP PACKET PO STA (21:10)
--- NOTE | 2018-11-09 21:14 | ER Document Report ---
ED General - General Chief Complaint: Abnormal Lab Results Stated Complaint: ABNORMAL LABS Time Seen by Provider: 11/09/18 15:23 Primary Care Provider: DEREK HALEY MD [Primary Care Provider] - Follow up as needed RODERICK MEDRANO MD [ACTIVE STAFF] - Follow up in 3-5 days Notes: Patient is a 53 year old female that presents to the emergency department for chief complaint of abnormal blood testing. Patient reports that she was having bloodwork drawn for outpatient testing, and was told her potassium was high, and came to the emergency department to be evaluated. She reports that she has had high potassium in the past, but never this high. She states that her blood pressure has been elevated as well, and has been having frontal headaches associated with that. Currently rates her headache as a 4/10, has been gradual in onset and denies being the worst headache she has ever had. She reports taking losartan and another medication for blood pressure but is not certain which ones she took today or at what time. Denies having any nausea, vomiting, chest pain, palpitation, shortness of breath, numbness, weakness, or tingling. Past Medical History: hypertension, ckd, multiple myeloma Past Surgical History: mediport, gastric bypass Social History: denies tobacco, etoh, or drug use. Family History: Reviewed and noncontributory for presenting illness Allergies: Reviewed, see documented allergy list. REVIEW OF SYSTEMS: Other than noted above, the 12 point review of systems was reviewed with the patient and were negative, all pertinent findings are included in the HPI. PHYSICAL EXAMINATION: Vital signs reviewed, nursing noted reviewed. GENERAL: Well-appearing, well-nourished and in no acute distress. HEAD: Atraumatic, normocephalic. EYES: Eyes appear normal, extraocular movements intact, sclera anicteric, conjunctiva are normal. ENT: nares patent, oropharynx clear without exudates. Moist mucous membranes. NECK: Normal range of motion, supple without lymphadenopathy LUNGS: Breath sounds clear to auscultation bilaterally and equal. No wheezes rales or rhonchi. HEART: Regular rate and rhythm without murmurs ABDOMEN: Soft, nontender, normoactive bowel sounds. No rebound, guarding, or rigidity. No masses appreciated. EXTREMITIES: Nontender, good range of motion, no pitting or edema. NEUROLOGICAL: No focal neurological deficits. Moves all extremities spontaneo usly Motor and sensory grossly intact on exam. PSYCH: Normal mood, normal affect. SKIN: Warm, Dry, normal turgor, no rashes or lesions noted on exposed skin TRAVEL OUTSIDE OF THE [place] IN LAST 30 DAYS: No - Related Data Allergies/Adverse Reactions: ibuprofen [From Motrin] Allergy (Verified 11/09/18 15:20) Penicillins Allergy (Verified 11/09/18 15:20) tramadol [Tramadol] Allergy (Verified 11/09/18 15:20) Past Medical History - Social History Smoking Status: Never Smoker Chew tobacco use (# tins/day): No Frequency of alcohol use: None Drug Abuse: None Family History: Reviewed & Not Pertinent Patient has suicidal ideation: No Patient has homicidal ideation: No - Past Medical History Cardiac Medical History: Reports: Hx Hypercholesterolemia, Hx Hypertension Denies: Hx Heart Attack Pulmonary Medical History: Denies: Hx Asthma, Hx Bronchitis, Hx COPD, Hx Pneumonia, Hx Tuberculosis Neurological Medical History: Denies: Hx Cerebrovascular Accident, Hx Seizures Endocrine Medical History: Reports: Hx Diabetes Mellitus Type 2 Renal/ Medical History: Denies: Hx Peritoneal Dialysis Malignancy Medical History: Reports: Hx Bone Cancer - multiple myeloma Musculoskeletal Medical History: Denies Hx Arthritis, Reports Hx Multiple Sclerosis Psychiatric Medical History: Reports: Hx Anxiety, Hx Depression Past Surgical History: Reports: Hx Abdominal Surgery - gastric bypass 08/08, Hx Cholecystectomy, Hx Hysterectomy, Hx Tubal Ligation. Denies: Hx Pacemaker - Immunizations Hx Diphtheria, Pertussis, Tetanus Vaccination: No Physical Exam - Vital signs Vitals: Temp Pulse Resp BP 98.9 F 94 14 182/106 H 11/09/18 14:58 11/09/18 14:58 11/09/18 14:58 11/09/18 14:58 Course - Re-evaluation Re-evalutation: Patient seen and examined vital signs reviewed. Laboratory data and imaging were ordered as appropriate for the patient's presenting symptoms and complaint, with consideration of any critical or life threatening conditions that may be associated with their obtained history and exam as noted above. Patient was treated with IV fluids, Veltassa, amp of bicarb, calcium gluconate, and insulin with D50 Results were reviewed when available and demonstrated a potassium of 5.6, renal function was at baseline, otherwise unremarkable or at patient's baseline The patient was re-evaluated and was stable, I did treat her headache with Tylenol, and was also given hydralazine for her elevated blood pressure which did improve it. And her headache resolved. She did have a CT scan ordered in triage which was negative. Evaluation was most consistent with hyperkalemia, most likely secondary to dietary changes and being on losartan with chronic kidney disease, advised holding off on her losartan, I did discuss this with her insurance follow up rep, who agreed with discharge and follow-up on Monday which she does have an appointment with her primary care physician. Patient was agreeable to this plan of care. She did not have EKG changes or reasons to admit her at this time, and she had aggressive treatment of her hyperkalemia, and was now in a safe range, prior to even receiving the Veltassa. Results were discussed with the patient at this point, after careful consideration I feel that that patient can be discharged from the emergency department, the patient was educated treatments and reasons to return to the emergency department based on their presumed diagnosis as noted above, they were advised to followup with a primary care physician in 2-3 days. Patient was agreeable to plan of care. *Note is created using voice recognition software and may contain spelling, syntax or grammatical errors. Laboratory 11/09/18 11/09/18 11/09/18 19:00 19:00 19:00 WBC 5.8 RBC 4.98 Hgb 11.9 L Hct 38.7 MCV 78 L MCH 23.9 L MCHC 30.7 L RDW 17.3 H Plt Count 261 Total Counted 100 Seg Neutrophils % Not Reportable Seg Neuts % (Manual) 48 Lymphocytes % Not Reportable Lymphocytes % (Manual) 49 H Monocytes % Not Reportable Monocytes % (Manual) 2 L Eosinophils % Not Reportable Eosinophils % (Manual) 1 Basophils % Not Reportable Basophils % (Manual) 0 Absolute Neutrophils Not Reportable Abs Neuts (Manual) 2.8 Absolute Lymphocytes Not Reportable Abs Lymphs (Manual) 2.8 Absolute Monocytes Not Reportable Abs Monocytes (Manual) 0.1 Absolute Eosinophils Not Reportable Absolute Eos (Manual) 0.1 Absolute Basophils Not Reportable Abs Basophils (Manual) 0.0 Platelet Comment ADEQUATE Anisocytosis 1+ Microcytosis SLIGHT Sodium 137.5 Potassium 5.6 H Chloride 105 Carbon Dioxide 19 L Anion Gap 14 BUN 23 H Creatinine 1.56 H Est GFR ( Amer) 42 L Est GFR (Non-Af Amer) 35 L Glucose 89 Calcium 10.0 Total Bilirubin 0.5 Direct Bilirubin 0.3 Neonat Total Bilirubin Not Reportable Neonat Direct Bilirubin Not Reportable Neonat Indirect Bili Not Reportable AST 24 ALT < 6 L Alkaline Phosphatase 138 H Troponin I < 0.012 Total Protein 7.4 Albumin 4.7 Urine Color Urine Appearance Urine pH Ur Specific Merom Urine Protein Urine Glucose (UA) Urine Ketones Urine Blood Urine Nitrite Urine Bilirubin Urine Urobilinogen Ur Leukocyte Esterase Urine WBC (Auto) Squamous Epi Cells Auto Urine Mucus (Auto) Urine Ascorbic Acid 11/09/18 21:20 WBC RBC Hgb Hct MCV MCH MCHC RDW Plt Count Total Counted Seg Neutrophils % Seg Neuts % (Manual) Lymphocytes % Lymphocytes % (Manual) Monocytes % Monocytes % (Manual) Eosinophils % Eosinophils % (Manual) Basophils % Basophils % (Manual) Absolute Neutrophils Abs Neuts (Manual) Absolute Lymphocytes Abs Lymphs (Manual) Absolute Monocytes Abs Monocytes (Manual) Absolute Eosinophils Absolute Eos (Manual) Absolute Basophils Abs Basophils (Manual) Platelet Comment Anisocytosis Microcytosis Sodium Potassium Chloride Carbon Dioxide Anion Gap BUN Creatinine Est GFR ( Amer) Est GFR (Non-Af Amer) Glucose Calcium Total Bilirubin Direct Bilirubin Neonat Total Bilirubin Neonat Direct Bilirubin Neonat Indirect Bili AST ALT Alkaline Phosphatase Troponin I Total Protein Albumin Urine Color COLORLESS Urine Appearance CLEAR Urine pH 6.0 Ur Specific Merom 1.006 Urine Protein NEGATIVE Urine Glucose (UA) 150 H Urine Ketones NEGATIVE Urine Blood NEGATIVE Urine Nitrite NEGATIVE Urine Bilirubin NEGATIVE Urine Urobilinogen NEGATIVE Ur Leukocyte Esterase NEGATIVE Urine WBC (Auto) 0 Squamous Epi Cells Auto 1 Urine Mucus (Auto) RARE Urine Ascorbic Acid NEGATIVE Head CT 11/09/18 15:32 IMPRESSION: Stable CT appearance of the brain. No evidence of acute intracranial abnormality. EVIDENCE OF ACUTE STROKE: NO. - Vital Signs Vital signs: Temp Pulse Resp BP Pulse Ox 98 F 94 16 188/88 H 99 11/09/18 21:57 11/09/18 14:58 11/09/18 22:05 11/09/18 21:57 11/09/18 22:05 - Laboratory Result Diagrams: 11/09/18 19:00 11/09/18 19:00 Laboratory results interpreted by me: 11/09/18 11/09/18 11/09/18 19:00 19:00 21:20 Hgb 11.9 L MCV 78 L MCH 23.9 L MCHC 30.7 L RDW 17.3 H Lymphocytes % (Manual) 49 H Monocytes % (Manual) 2 L Potassium 5.6 H Carbon Dioxide 19 L BUN 23 H Creatinine 1.56 H Est GFR ( Amer) 42 L Est GFR (Non-Af Amer) 35 L ALT < 6 L Alkaline Phosphatase 138 H Urine Glucose (UA) 150 H - EKG Interpretation by Me Additional EKG results interpreted by me: EKG demonstrates sinus rhythm with a ventricular rate of 72 bpm, normal axis, QTC 460 ms, no QRS widening, no ST elevations, occasional PVCs. Discharge - Discharge Clinical Impression: Hyperkalemia Headache Qualifiers: Headache type: unspecified Headache chronicity pattern: unspecified pattern Intractability: not intractable Qualified Code(s): R51 - Headache Hypertension Qualifiers: Hypertension type: unspecified Qualified Code(s): I10 - Essential (primary) hypertension Condition: Stable Disposition: HOME, SELF-CARE Instructions: Potassium ([facility]) Additional Instructions: Please hold off on taking any more losartan over the weekend, and follow-up with Dr. Medrano in the office on Monday and discuss your blood pressure medications. Avoid foods that are high in potassium such as bananas, potatoes, tomatoes. This would include any tomato juices. Referrals: DEREK HALEY MD [Primary Care Provider] - Follow up as needed RODERICK MEDRANO MD [ACTIVE STAFF] - Follow up in 3-5 days
[2018-11-09] MEDS ORDERED: HYDRALAZINE HCL INJ/PF 20 MG/1 ML SDV IV ONE (21:29)
[2018-11-09] MEDS ORDERED: SODIUM BICARBONATE 8.4% INJ 50 MEQ/50 ML DISP.SYRIN IV ONE (21:33)
[2018-11-09 21:49] LABS: APPEARANCE,URINE CLEAR; BILIRUBIN,URINE NEGATIVE (NEGATIVE); COLOR,URINE COLORLESS; GLUCOSE, URINE 150 mg/dL (NEGATIVE); KETONES,URINE NEGATIVE (NEGATIVE); LEUKOCYTE ESTERASE,URINE NEGATIVE (NEGATIVE); NITRITE,URINE NEGATIVE (NEGATIVE); PROTEIN,URINE NEGATIVE (NEGATIVE); URINE SPECIFIC GRAVITY 1.006; UROBILINOGEN,URINE NEGATIVE mg/dL (<2.0)
[2018-11-09 22:57] VITALS: BP 188/88
--- NOTE | 2018-11-10 17:21 | EKG REPORT ---
SEVERITY:- ABNORMAL ECG - SINUS RHYTHM MULTIPLE VENTRICULAR PREMATURE COMPLEXES : Confirmed by: Jakob Biacnhi MD 10-Nov-2018 17:20:42
== END 2018-11-09 22:57 | disposition home or self-care (01) ==
LOC: ER 14:41
DX: E87.5 Hyperkalemia (principal); R51 Headache; I12.9 Hypertensive chronic kidney disease with stage 1 through stage 4 chronic kidney disease, or unspecified chronic kidney disease; N18.9 Chronic kidney disease, unspecified; R79.89 Other specified abnormal findings of blood chemistry; Z79.899 Other long term (current) drug therapy
CPT/HCPCS: 93005; 36591; 99284; 96361; 96374; 96375; 36415; 85025; 80053; 81001; 84484; 70450; 93010; A9270 ×2; J0610; J3490 ×3; J0360; J7030; J1815

== ENCOUNTER → 2018-11-09 | Outpatient (CLI) | payer MEDICARE, MEDICAID ==
[2018-11-09 13:21] LABS: ABSOLUTE NEUT (AUTO) 3.5 10^3/uL (1.7-8.2); TOTAL CELLS COUNTED % (AUTO) 100 %
[2018-11-09 13:33] LABS: ABSOLUTE LYMPHOCYTES (AUTO) 1.8 10^3/uL (0.5-4.7); ABSOLUTE MONOCYTES (AUTO) 0.4 10^3/uL (0.1-1.4); BASOPHILS % (AUTO) 0.4 % (0-2); EOSINOPHILS % (AUTO) 0.1 % (0-6); HEMATOCRIT 39.3 % (36.0-47.0); LYMPHOCYTES % (AUTO) 32.2 % (13-45); MEAN CORPUSCULAR HEMOGLOBIN 23.9 pg (27.0-33.4); MEAN CORPUSCULAR HGB CONC 30.5 g/dL (32.0-36.0); MEAN CORPUSCULAR VOLUME 78 fl (80-97); MONOCYTES % (AUTO) 6.8 % (3-13); PLATELET COUNT 258 10^3/uL (150-450); RED BLOOD COUNT 5.02 10^6/uL (3.72-5.28); RED CELL DISTRIBUTION WIDTH 17.4 % (11.5-14.0); SEGMENTED NEUTROPHILS % (AUTO) 60.5 % (42-78); WHITE BLOOD COUNT 5.7 10^3/uL (4.0-10.5)
[2018-11-09 13:35] LABS: ALBUMIN 4.8 g/dL (3.5-5.0); ANION GAP 15 (5-19); BLOOD UREA NITROGEN 26 mg/dL (7-20); CALCIUM 10.3 mg/dL (8.4-10.2); CARBON DIOXIDE 20 mmol/L (22-30); CHLORIDE 105 mmol/L (98-107); GLUCOSE 159 mg/dL (75-110); PHOSPHORUS 5.4 mg/dL (2.5-4.5); SODIUM 139.9 mmol/L (137-145)
[2018-11-09 13:41] LABS: APPEARANCE,URINE CLEAR; BILIRUBIN,URINE NEGATIVE (NEGATIVE); COLOR,URINE YELLOW; GLUCOSE, URINE NEGATIVE (NEGATIVE); KETONES,URINE TRACE mg/dL (NEGATIVE); LEUKOCYTE ESTERASE,URINE NEGATIVE (NEGATIVE); NITRITE,URINE NEGATIVE (NEGATIVE); PROTEIN,URINE 100 mg/dL (NEGATIVE); URINE SPECIFIC GRAVITY 1.017; UROBILINOGEN,URINE NEGATIVE mg/dL (<2.0)
[2018-11-09 14:01] LABS: UR PRO/CREAT RATIO RESULT 0.5 mg/mg (0.0-0.2); URINE CREATININE 142.5 mg/dL (15-278); URINE PROTEIN 66.9 mg/dL (<12)
[2018-11-09 14:10] LABS: POTASSIUM 6.4 mmol/L (3.6-5.0)
== END ==
LOC: OD 12:33
PROVIDERS: ATTEND Internal Medicine Nephrology
DX: E11.22 Type 2 diabetes mellitus with diabetic chronic kidney disease (principal); I12.9 Hypertensive chronic kidney disease with stage 1 through stage 4 chronic kidney disease, or unspecified chronic kidney disease; N18.3 Chronic kidney disease, stage 3 (moderate); R80.9 Proteinuria, unspecified
CPT/HCPCS: 36415; 80069; 81001; 82306; 82570; 83970; 84156; 85025

== ENCOUNTER 2019-01-23 16:17 | Emergency (ER) | payer MEDICARE, MEDICAID ==
--- NOTE | 2019-01-23 17:56 | ER Document Report ---
HPI - HPI Patient complains to provider of: Head bone and right knee pain Time Seen by Provider: 01/23/19 17:22 Onset: This morning Onset/Duration: Sudden, Persistent Quality of pain: Achy, Throbbing Severity: Severe Pain Level: 5 Context: Patient presents to the emergency department with complaints of head pain tailbone and right knee pain. Patient reports she missed a step this morning fell onto her side, hiting her head landed on her tailbone and hitting her right knee.. She denies change in LOC. She reports she took Tylenol without relief of symptoms. Denies other symptoms such as fever vomiting diarrhea. Associated Symptoms: None Exacerbated by: Movement Relieved by: Denies Similar symptoms previously: No Recently seen / treated by doctor: No - REPRODUCTIVE Reproductive: DENIES: : Past Medical History - General Information source: Patient Last Menstrual Period: partial hyst - Social History Smoking Status: Unknown if Ever Smoked Cigarette use (# per day): No Frequency of alcohol use: None Drug Abuse: None Lives with: Family Family History: Reviewed & Not Pertinent Patient has suicidal ideation: No Patient has homicidal ideation: No - Past Medical History Cardiac Medical History: Reports: Hx Hypercholesterolemia, Hx Hypertension Denies: Hx Heart Attack Pulmonary Medical History: Denies: Hx Asthma, Hx Bronchitis, Hx COPD, Hx Pneumonia, Hx Tuberculosis Neurological Medical History: Denies: Hx Cerebrovascular Accident, Hx Seizures Endocrine Medical History: Reports: Hx Diabetes Mellitus Type 2 Renal/ Medical History: Denies: Hx Peritoneal Dialysis Malignancy Medical History: Reports: Hx Bone Cancer - multiple myeloma Musculoskeletal Medical History: Denies Hx Arthritis, Reports Hx Multiple Sclerosis Psychiatric Medical History: Reports: Hx Anxiety, Hx Depression Past Surgical History: Reports: Hx Abdominal Surgery - gastric bypass 08/08, Hx Cholecystectomy, Hx Hysterectomy, Hx Tubal Ligation. Denies: Hx Pacemaker - Immunizations Hx Diphtheria, Pertussis, Tetanus Vaccination: No Vertical Provider Document - CONSTITUTIONAL Agree With Documented VS: Yes Exam Limitations: No Limitations General Appearance: WD/WN, Mild Distress - Winces with movement - INFECTION CONTROL TRAVEL OUTSIDE OF THE [place] IN LAST 30 DAYS: No - HEENT HEENT: Atraumatic, Normal ENT Exam, Normocephalic, PERRLA. negative: Conjuctival Injection, Pharyngeal Erythema - NECK Neck: Normal Inspection, Supple. negative: Lymphadenopathy-Left, Lymphadenopathy-Right - RESPIRATORY Respiratory: Breath Sounds Normal, No Respiratory Distress - CARDIOVASCULAR Cardiovascular: Regular Rate - GI/ABDOMEN Gastrointestinal: Abdomen Soft, Abdomen Non-Tender - BACK Back: Normal Inspection - No obvious deformity no swelling no erythema no warmth no ecchymosis good distal movement and sensation - MUSCULOSKELETAL/EXTREMETIES Musculoskeletal/Extremeties: MAEW, FROM, Tender - Reports right knee tender to palpate - NEURO Level of Consciousness: Awake, Alert, Appropriate Motor/Sensory: No Motor Deficit - DERM Integumentary: Warm, Dry Adult Front & Back Diagram: 1 - Patient complains of pain area tender to palpate 2 - Patient complains of pain Course - Re-evaluation Re-evalutation: 01/23/19 19:09 CT of the head negative, x-ray of the knee and tailbone negative. Patient instructed on negative results Tylenol for pain ice packs ice and elevate. She verbalized understanding. Instructed follow-up with her primary care provider for recheck within 1 week. Dictation of this chart was performed using voice recognition software; therefore, there may be some unintended grammatical errors. - Vital Signs Vital signs: Temp Pulse Resp BP Pulse Ox 98.3 F 73 16 204/81 H 97 01/23/19 16:46 01/23/19 16:46 01/23/19 16:46 01/23/19 16:46 01/23/19 16:46 - Diagnostic Test Radiology reviewed: Image reviewed, Reports reviewed - EXAM DESCRIPTION: SACRUM AND COCCYX COMPLETED DATE/TIME: 01/23/2019 6:27 pm REASON FOR STUDY: fall knee head tailbone pain COMPARISON: None. NUMBER OF VIEWS: Three views. TECHNIQUE: AP, lateral, and tilt views of the sacrum and coccyx. LIMITATIONS: None. FINDINGS: MINERALIZATION: Normal. BONES: No acute fracture or dislocation. No worrisome bone lesions. SOFT TISSUES: No soft tissue swelling. No foreign body. OTHER: No other significant finding. IMPRESSION: NEGATIVE STUDY OF THE SACRUM AND COCCYX. Report EXAM DESCRIPTION: KNEE RIGHT 3 VIEWS COMPLETED DATE/TIME: 01/23/2019 6:27 pm REASON FOR STUDY: fall knee head tailbone pain COMPARISON: None. NUMBER OF VIEWS: Three views. TECHNIQUE: AP, lateral, and sunrise patella radiographic images acquired of the right knee. LIMITATIONS: None. FINDINGS: MINERALIZATION: Normal. BONES: No acute fracture or dislocation. No worrisome bone lesions. JOINT: No effusion. SOFT TISSUES: No soft tissue swelling. No radio-opaque foreign body. OTHER: No other significant finding. IMPRESSION: NEGATIVE STUDY OF THE RIGHT KNEE. NO RADIOGRAPHIC EVIDENCE OF ACUTE INJURY EXAM DESCRIPTION: CT HEAD WITHOUT COMPLETED DATE/TIME: 01/23/2019 6:06 pm REASON FOR STUDY: fall knee head tailbone pain COMPARISON: 11/09/2018 TECHNIQUE: Axial images acquired through the brain without intravenous contrast. Images reviewed with bone, brain and subdural windows. Additional sagittal and coronal reconstructions were generated. Images stored on PACS. All CT scanners at this facility use dose modulation, iterative reconstruction, and/or weight based dosing when appropriate to reduce radiation dose to as low as reasonably achievable (ALARA). [facility]: Dose Right [facility]: CareDose [facility]: Dose Right [facility]: Teradose 4D [facility]: [employer] RADIATION DOSE: CT Rad equipment meets quality standard of care and radiation dose reduction techniques were employed. CTDIvol: 53.2 mGy. DLP: 991 mGy-cm. mGy. LIMITATIONS: None. FINDINGS: VENTRICLES: Normal size and contour. CEREBRUM: No masses. No hemorrhage. No midline shift. No evidence for acute infarction. Few scattered areas of low density in the white matter most likely chronic small vessel ischemic changes. CEREBELLUM: No masses. No hemorrhage. No alteration of density. No evidence for acute infarction. EXTRAAXIAL SPACES: No fluid collections. No masses. ORBITS AND GLOBE: No intra- or extraconal masses. Normal contour of globe without masses. CALVARIUM: No fracture. PARANASAL SINUSES: No fluid or mucosal thickening. SOFT TISSUES: No mass or hematoma. OTHER: No other significant finding. IMPRESSION: Mild chronic microvascular ischemia with no acute intracranial imaging findings. EVIDENCE OF ACUTE STROKE: NO. Discharge - Discharge Clinical Impression: Fall Qualifiers: Encounter type: initial encounter Qualified Code(s): W19.XXXA - Unspecified fall, initial encounter Right knee pain Qualifiers: Chronicity: acute Qualified Code(s): M25.561 - Pain in right knee Tailbone injury Qualifiers: Encounter type: initial encounter Qualified Code(s): S39.92XA - Unspecified injury of lower back, initial encounter Condition: Stable Disposition: HOME, SELF-CARE Instructions: Acetaminophen, Head Injury Precautions ([facility]), Ice & Elevation ([facility]) Additional Instructions: *You have been evaluated post fall for Headache, knee pain, tailbone pain Your x-rays were negative for an acute injury, your CT did not show a head injury *rest/ice to your knee and low back pain *Follow up with primary care provider within one week *Take tylenol as indicated *Return to ED for worsening condition, changes, needs Referrals: RODERICK MEDRANO MD [Primary Care Provider] - Follow up as needed
--- NOTE | 2019-01-23 18:18 | RADIOLOGY REPORT (SQ) ---
EXAM DESCRIPTION: CT HEAD WITHOUT COMPLETED DATE/TIME: 01/23/2019 6:06 pm REASON FOR STUDY: fall knee head tailbone pain COMPARISON: 11/09/2018 TECHNIQUE: Axial images acquired through the brain without intravenous contrast. Images reviewed wi th bone, brain and subdural windows. Additional sagittal and coronal reconstructions were generated. Images stored on PACS. All CT scanners at this facility use dose modulation, iterative reconstruction, and/or weight based d osing when appropriate to reduce radiation dose to as low as reasonably achievable (ALARA). [facility]: Dose Right [facility]: CareDose [facility]: Dose Right [facility]: Teradose 4D [facility]: [employer] RADIATION DOSE: CT Rad equipment meets quality standard of care and radiation dose reduction techniq ues were employed. CTDIvol: 53.2 mGy. DLP: 991 mGy-cm. mGy. LIMITATIONS: None. FINDINGS: VENTRICLES: Normal size and contour. CEREBRUM: No masses. No hemorrhage. No midline shift. No evidence for acute infarction. Few scatte red areas of low density in the white matter most likely chronic small vessel ischemic changes. CEREBELLUM: No masses. No hemorrhage. No alteration of density. No evidence for acute infarction. EXTRAAXIAL SPACES: No fluid collections. No masses. ORBITS AND GLOBE: No intra- or extraconal masses. Normal contour of globe without masses. CALVARIUM: No fracture. PARANASAL SINUSES: No fluid or mucosal thickening. SOFT TISSUES: No mass or hematoma. OTHER: No other significant finding. IMPRESSION: Mild chronic microvascular ischemia with no acute intracranial imaging findings. EVIDENCE OF ACUTE STROKE: NO. COMMENT: Quality ID # [id number]: Final reports with documentation of one or more dose reduction techniques (e.g., Automated exposure control, adjustment of the mA and/or kV according to patient size, use of iterative reconstruction technique) TECHNICAL DOCUMENTATION: JOB ID: [id number] [employer]- All Rights Reserved Reading location - IP/workstation name: [email or web address]
--- NOTE | 2019-01-23 19:00 | RADIOLOGY REPORT (SQ) ---
EXAM DESCRIPTION: SACRUM AND COCCYX COMPLETED DATE/TIME: 01/23/2019 6:27 pm REASON FOR STUDY: fall knee head tailbone pain COMPARISON: None. NUMBER OF VIEWS: Three views. TECHNIQUE: AP, lateral, and tilt views of the sacrum and coccyx. LIMITATIONS: None. FINDINGS: MINERALIZATION: Normal. BONES: No acute fracture or dislocation. No worrisome bone lesions. SOFT TISSUES: No soft tissue swelling. No foreign body. OTHER: No other significant finding. IMPRESSION: NEGATIVE STUDY OF THE SACRUM AND COCCYX. TECHNICAL DOCUMENTATION: JOB ID: [id number] [employer]- All Rights Reserved Reading location - IP/workstation name: [email or web address]
--- NOTE | 2019-01-23 19:01 | RADIOLOGY REPORT (SQ) ---
EXAM DESCRIPTION: KNEE RIGHT 3 VIEWS COMPLETED DATE/TIME: 01/23/2019 6:27 pm REASON FOR STUDY: fall knee head tailbone pain COMPARISON: None. NUMBER OF VIEWS: Three views. TECHNIQUE: AP, lateral, and sunrise patella radiographic images acquired of the right knee. LIMITATIONS: None. FINDINGS: MINERALIZATION: Normal. BONES: No acute fracture or dislocation. No worrisome bone lesions. JOINT: No effusion. SOFT TISSUES: No soft tissue swelling. No radio-opaque foreign body. OTHER: No other significant finding. IMPRESSION: NEGATIVE STUDY OF THE RIGHT KNEE. NO RADIOGRAPHIC EVIDENCE OF ACUTE INJURY. TECHNICAL DOCUMENTATION: JOB ID: [id number] [employer]- All Rights Reserved Reading location - IP/workstation name: [email or web address]
[2019-01-23 19:33] VITALS: BP 181/89
== END 2019-01-23 19:21 | disposition home or self-care (01) ==
LOC: ER 16:17
DX: S39.92XA Unspecified injury of lower back, initial encounter (principal); M25.561 Pain in right knee; R51 Headache; W10.9XXA Fall (on) (from) unspecified stairs and steps, initial encounter; I10 Essential (primary) hypertension; E11.9 Type 2 diabetes mellitus without complications; Z98.84 Bariatric surgery status
CPT/HCPCS: 70450; 72220; 99283

== ENCOUNTER → 2019-03-11 | Outpatient (CLI) | payer MEDICARE, MEDICAID ==
[2019-03-11 10:34] LABS: HEMATOCRIT 29.9 % (36.0-47.0); HEMOGLOBIN 9.2 g/dL (12.0-15.5); MEAN CORPUSCULAR HEMOGLOBIN 23.8 pg (27.0-33.4); MEAN CORPUSCULAR HGB CONC 30.9 g/dL (32.0-36.0); MEAN CORPUSCULAR VOLUME 77 fl (80-97); PLATELET COUNT 264 10^3/uL (150-450); RED BLOOD COUNT 3.87 10^6/uL (3.72-5.28); RED CELL DISTRIBUTION WIDTH 15.5 % (11.5-14.0)
[2019-03-11 10:39] LABS: APPEARANCE,URINE SLIGHTLY-CLOUDY; BILIRUBIN,URINE NEGATIVE (NEGATIVE); COLOR,URINE YELLOW; GLUCOSE, URINE NEGATIVE (NEGATIVE); KETONES,URINE NEGATIVE (NEGATIVE); LEUKOCYTE ESTERASE,URINE NEGATIVE (NEGATIVE); NITRITE,URINE NEGATIVE (NEGATIVE); PROTEIN,URINE 30 mg/dL (NEGATIVE); URINE SPECIFIC GRAVITY 1.018; UROBILINOGEN,URINE NEGATIVE mg/dL (<2.0)
[2019-03-11 11:03] LABS: ABSOLUTE LYMPHOCYTES# (MANUAL) 1.9 10^3/uL (0.5-4.7); ABSOLUTE MONOCYTES # (MANUAL) 0.6 10^3/uL (0.1-1.4); ALANINE AMINOTRANSFERASE 14 U/L (9-52); ALBUMIN 4.4 g/dL (3.5-5.0); ALKALINE PHOSPHATASE 129 U/L (38-126); ANION GAP 10 (5-19); ASPARTATE AMINO TRANSFERASE 17 U/L (14-36); BASOPHILS % (MANUAL) 0 % (0-2); BILIRUBIN,DIRECT 0.3 mg/dL (0.0-0.4); BILIRUBIN,TOTAL 0.4 mg/dL (0.2-1.3); BLOOD UREA NITROGEN 33 mg/dL (7-20); CALCIUM 9.6 mg/dL (8.4-10.2); CARBON DIOXIDE 18 mmol/L (22-30); CHLORIDE 112 mmol/L (98-107); EOSINOPHILS % (MANUAL) 1 % (0-6); GLUCOSE 176 mg/dL (75-110); LYMPHOCYTES % (MANUAL) 31 % (13-45); MONOCYTES % (MANUAL) 10 % (3-13); NUCLEATED RED BLOOD CELLS 4 /100 WBC (0); POTASSIUM 5.4 mmol/L (3.6-5.0); SEGMENTED NEUTROPHILS % (MAN) 58 % (42-78); SODIUM 139.7 mmol/L (137-145); TOTAL CELLS COUNTED 100; URIC ACID 9.2 mg/dL (2.5-7.5)
[2019-03-11 11:04] LABS: ANISOCYTOSIS 2+; OVALOCYTES SLIGHT; PLATELET COMMENT ADEQUATE; POIKILOCYTOSIS SLIGHT; POLYCHROMASIA SLIGHT
[2019-03-11 11:16] LABS: FREE T4 (FREE THYROXINE) 0.97 ng/dL (0.78-2.19)
[2019-03-11 11:29] LABS: THYROID STIMULATING HORMONE 2.18 uIU/mL (0.47-4.68)
[2019-03-12 10:36] LABS: CREATININE URINE 193.4 mg/dL (Not Estab.); MICROALBUMIN URINE 127.9 ug/mL (Not Estab.)
== END ==
LOC: OD 09:08
PROVIDERS: ATTEND Internal Medicine
DX: E11.42 Type 2 diabetes mellitus with diabetic polyneuropathy (principal)
CPT/HCPCS: 36415; 80053; 81001; 82043; 82570; 83036; 84439; 84443; 84550; 85025

== ENCOUNTER → 2019-03-11 | Outpatient (CLI) | payer MEDICARE, MEDICAID ==
--- NOTE | 2019-03-11 10:11 | WOMENS IMAGING REPORT ---
EXAM DESCRIPTION: 3D SCREENING MAMMO BILAT COMPLETED DATE/TIME: 03/11/2019 9:07 am REASON FOR STUDY: Z12.31 ROUTINE 3D BILATERAL SCREENING Z12.31 ENCNTR SCREEN MAMMOGRAM FOR MALIGNAN T NEOPLASM OF JERMAINE COMPARISON: [id number] EXAM PARAMETERS: Views: Standard craniocaudal and mediolateral oblique views of each breast recorded using digital acquisition and breast tomosynthesis. Read with the assistance of CAD. .[facility] - [employer] Machine Feeder Version 9.2 LIMITATIONS: Left-sided port. FINDINGS: No suspicious masses, suspicious calcifications or architectural distortion. No areas of c oncern. IMPRESSION: NEGATIVE MAMMOGRAM. BIRADS 1. BREAST DENSITY: b. There are scattered areas of fibroglandular density. BIRAD: ASSESSMENT: 1 NEGATIVE RECOMMENDATION: ROUTINE SCREENING COMMENT: The patient has been notified of the results by letter per MQSA requirements. Additional no tification policies are in place for contacting patient with suspicious or incomplete findings. Quality ID #225: The [employer] recommends an annual screening mammogram for women aged 40 years or over. This facility utilizes a reminder system to ensure that all patients receive reminder letters, and/or direct phone calls for appointments. This includes reminders for routine scr eening mammograms, diagnostic mammograms, or other Breast Imaging Interventions when appropriate. Th is patient will be placed in the appropriate reminder system. TECHNICAL DOCUMENTATION: FINDING NUMBER: (1) ASSESSMENT: (1) JOB ID: [id number] [employer]- All Rights Reserved Reading location - IP/workstation name: [email or web address]
== END ==
LOC: WI 08:24
PROVIDERS: ATTEND Internal Medicine
DX: Z12.31 Encounter for screening mammogram for malignant neoplasm of breast (principal)
CPT/HCPCS: 77063; 77067

== ENCOUNTER → 2019-04-22 | Outpatient (CLI) | payer MEDICARE, MEDICAID ==
[2019-04-22 11:17] LABS: HEMATOCRIT 32.9 % (36.0-47.0); MEAN CORPUSCULAR HEMOGLOBIN 23.5 pg (27.0-33.4); MEAN CORPUSCULAR HGB CONC 30.3 g/dL (32.0-36.0); MEAN CORPUSCULAR VOLUME 78 fl (80-97); PLATELET COUNT 251 10^3/uL (150-450); RED BLOOD COUNT 4.24 10^6/uL (3.72-5.28); WHITE BLOOD COUNT 5.3 10^3/uL (4.0-10.5)
[2019-04-22 11:20] LABS: APPEARANCE,URINE CLEAR; BILIRUBIN,URINE NEGATIVE (NEGATIVE); COLOR,URINE YELLOW; GLUCOSE, URINE NEGATIVE (NEGATIVE); KETONES,URINE NEGATIVE (NEGATIVE); LEUKOCYTE ESTERASE,URINE NEGATIVE (NEGATIVE); NITRITE,URINE NEGATIVE (NEGATIVE); PROTEIN,URINE 30 mg/dL (NEGATIVE); URINE SPECIFIC GRAVITY 1.014; UROBILINOGEN,URINE NEGATIVE mg/dL (<2.0)
[2019-04-22 11:43] LABS: ABSOLUTE LYMPHOCYTES# (MANUAL) 1.7 10^3/uL (0.5-4.7); ABSOLUTE MONOCYTES # (MANUAL) 0.4 10^3/uL (0.1-1.4); ANISOCYTOSIS SLIGHT; BASOPHILS % (MANUAL) 0 % (0-2); EOSINOPHILS % (MANUAL) 1 % (0-6); HYPOCHROMASIA 1+; LYMPHOCYTES % (MANUAL) 32 % (13-45); MONOCYTES % (MANUAL) 7 % (3-13); NUCLEATED RED BLOOD CELLS 1 /100 WBC (0); OVALOCYTES SLIGHT; PLATELET COMMENT ADEQUATE; POIKILOCYTOSIS SLIGHT; POLYCHROMASIA SLIGHT; SEGMENTED NEUTROPHILS % (MAN) 59 % (42-78); TOTAL CELLS COUNTED 100
[2019-04-22 11:51] LABS: ALBUMIN 4.4 g/dL (3.5-5.0); ANION GAP 11 (5-19); BLOOD UREA NITROGEN 19 mg/dL (7-20); CALCIUM 9.4 mg/dL (8.4-10.2); CARBON DIOXIDE 22 mmol/L (22-30); CHLORIDE 104 mmol/L (98-107); GLUCOSE 204 mg/dL (75-110); PHOSPHORUS 4.4 mg/dL (2.5-4.5); POTASSIUM 5.9 mmol/L (3.6-5.0)
[2019-04-22 12:36] LABS: UR PRO/CREAT RATIO RESULT 0.5 mg/mg (0.0-0.2); URINE CREATININE 100.3 mg/dL (15-278); URINE PROTEIN 49.4 mg/dL (<12)
== END ==
LOC: OD 10:41
PROVIDERS: ATTEND Internal Medicine Nephrology
DX: E11.22 Type 2 diabetes mellitus with diabetic chronic kidney disease (principal); I12.9 Hypertensive chronic kidney disease with stage 1 through stage 4 chronic kidney disease, or unspecified chronic kidney disease; N18.3 Chronic kidney disease, stage 3 (moderate); D63.1 Anemia in chronic kidney disease; N25.81 Secondary hyperparathyroidism of renal origin
CPT/HCPCS: 36415; 80069; 81001; 82306; 82570; 83970; 84156; 85025

== ENCOUNTER → 2019-08-06 | Outpatient (CLI) | payer MEDICARE, MEDICAID ==
--- NOTE | 2019-08-06 15:16 | WOMENS IMAGING REPORT ---
EXAM DESCRIPTION: BONE DENSITY HIP/SPINE COMPLETED DATE/TIME: 08/06/2019 10:30 am REASON FOR STUDY: N95.9 N95.9 UNSPECIFIED MENOPAUSAL AND PERIMENOPAUSAL DISORDER COMPARISON: None. TECHNIQUE: Dual-Energy X-ray Absorptiometry (DEXA) of the AP Spine and Hip. LIMITATIONS: None. FINDINGS: LUMBAR SPINE: The bone mineral density (BMD) measured from L1-L4 in the AP projection correlates with a T-score of 0.9, which is normal as defined by the World Health Organization. BMD Change vs Baseline: N/A HIP: The bone mineral density (BMD) measured in the left femoral neck at the hip correlates with a T-score of -1.2, which is osteopenic as defined by the World Health Organization. BMD Change vs Baseline: N/A 10 year Fracture Risk Assessment: Major Osteoporotic Fracture: 2.5% Hip Fracture: 0.1% IMPRESSION: 1. LUMBAR SPINE WHO CLASSIFICATION: NORMAL. 2. HIP WHO CLASSIFICATION: OSTEOPENIA. OVERALL ASSESSMENT: WHO CLASSIFICATION: OSTEOPENIA. COMMENT: The World Health Organization defines low BMD as follows: T-score: Normal: Greater than -1.0 Osteopenia: Between -1.0 and -2.5 Osteoporosis: Less than -2.5 without fractures Established osteoporosis: Less than -2.5 with fractures In general, you may wish to consider: Diagnosis Treatment Follow-up DEXA Normal BMD Prevention 2-3 years Osteopenia Prevention/Therapy 1-2 years Osteoporosis Therapy Yearly TECHNICAL DOCUMENTATION: JOB ID: [id number] [employer]- All Rights Reserved Reading location - IP/workstation name: [email or web address]
== END ==
LOC: WI 10:29
PROVIDERS: ATTEND Internal Medicine Hematology & Oncology
DX: M85.88 Other specified disorders of bone density and structure, other site (principal); N95.9 Unspecified menopausal and perimenopausal disorder
CPT/HCPCS: 77080

== ENCOUNTER → 2019-09-24 | Outpatient (CLI) | payer MEDICARE, MEDICAID ==
[2019-09-24 10:28] LABS: ABSOLUTE LYMPHOCYTES (AUTO) 1.7 10^3/uL (0.5-4.7); ABSOLUTE MONOCYTES (AUTO) 0.4 10^3/uL (0.1-1.4); ABSOLUTE NEUT (AUTO) 3.4 10^3/uL (1.7-8.2); BASOPHILS % (AUTO) 0.6 % (0-2); EOSINOPHILS % (AUTO) 0.6 % (0-6); HEMATOCRIT 36.9 % (36.0-47.0); HEMOGLOBIN 11.1 g/dL (12.0-15.5); LYMPHOCYTES % (AUTO) 30.5 % (13-45); MEAN CORPUSCULAR VOLUME 77 fl (80-97); MONOCYTES % (AUTO) 7.8 % (3-13); PLATELET COUNT 251 10^3/uL (150-450); RED BLOOD COUNT 4.82 10^6/uL (3.72-5.28); RED CELL DISTRIBUTION WIDTH 17.7 % (11.5-14.0); SEGMENTED NEUTROPHILS % (AUTO) 60.5 % (42-78); TOTAL CELLS COUNTED % (AUTO) 100 %; WHITE BLOOD COUNT 5.5 10^3/uL (4.0-10.5)
[2019-09-24 10:44] LABS: ALBUMIN 4.4 g/dL (3.5-5.0); ANION GAP 7 (5-19); APPEARANCE,URINE SLIGHTLY-CLOUDY; BILIRUBIN,URINE NEGATIVE (NEGATIVE); BLOOD UREA NITROGEN 28 mg/dL (7-20); CALCIUM 9.5 mg/dL (8.4-10.2); CARBON DIOXIDE 25 mmol/L (22-30); CHLORIDE 108 mmol/L (98-107); COLOR,URINE YELLOW; GLUCOSE 218 mg/dL (75-110); GLUCOSE, URINE NEGATIVE (NEGATIVE); KETONES,URINE NEGATIVE (NEGATIVE); LEUKOCYTE ESTERASE,URINE TRACE (NEGATIVE); NITRITE,URINE NEGATIVE (NEGATIVE); PHOSPHORUS 3.5 mg/dL (2.5-4.5); POTASSIUM 5.7 mmol/L (3.6-5.0); PROTEIN,URINE 100 mg/dL (NEGATIVE); UROBILINOGEN,URINE NEGATIVE mg/dL (<2.0)
[2019-09-24 10:52] LABS: ANISOCYTOSIS 1+; HYPOCHROMASIA 2+; PLATELET COMMENT ADEQUATE; PLATELET LARGE PRESENT; POIKILOCYTOSIS SLIGHT; POLYCHROMASIA SLIGHT; TARGET CELLS SLIGHT; TEAR DROP CELLS SLIGHT
[2019-09-25 11:50] LABS: MICROALBUMIN URINE 458.6 ug/mL (Not Estab.)
== END ==
LOC: OD 09:44
PROVIDERS: ATTEND Internal Medicine Nephrology
DX: E11.22 Type 2 diabetes mellitus with diabetic chronic kidney disease (principal); I12.9 Hypertensive chronic kidney disease with stage 1 through stage 4 chronic kidney disease, or unspecified chronic kidney disease; N18.3 Chronic kidney disease, stage 3 (moderate); D63.1 Anemia in chronic kidney disease; N25.81 Secondary hyperparathyroidism of renal origin
CPT/HCPCS: 36415; 80069; 81001; 82043; 82306; 82570; 83970; 85025

== ENCOUNTER → 2019-10-04 | Outpatient (CLI) | payer MEDICARE, MEDICAID | LOC: OD 08:46 | PROVIDERS: ATTEND Internal Medicine Nephrology | DX: E87.5 Hyperkalemia (principal) | CPT/HCPCS: 36415; 84132 ==

== ENCOUNTER → 2019-11-29 | Outpatient (CLI) | payer MEDICARE, MEDICAID ==
--- NOTE | 2019-11-29 12:20 | RADIOLOGY REPORT (SQ) ---
EXAM DESCRIPTION: CT ABDOMEN IV CONTRAST ONLY IMAGES COMPLETED DATE/TIME: 11/29/2019 10:40 am REASON FOR STUDY: BONE CA (C79.51) C79.51 SECONDARY MALIGNANT NEOPLASM OF BONE COMPARISON: None. TECHNIQUE: CT scan of the abdomen performed with intravenous and without oral contrast using helical scanning technique with dynamic intravenous contrast injection. Images reviewed with lung, soft tiss ue, and bone windows. Reconstructed coronal and sagittal MPR images reviewed. Delayed images for eval uation of the urinary system also acquired and evaluated. All images stored on PACS. All CT scanners at this facility use dose modulation, iterative reconstruc tion, and/or weight based dosing when appropriate to reduce radiation dose to as low as reasonably ac hievable (ALARA). [facility]: Dose Right [facility]: CareDose [facility]: Dose Right [facility]: Teradose 4D [facility]: [employer] CONTRAST TYPE AND DOSE: contrast/concentration: Isovue 350.00 mg/ml; Total Contrast Delivered: 73.0 ml; Total Saline Delivered: 66.0 ml RENAL FUNCTION: Creatinine 1.3 RADIATION DOSE: CT Rad equipment meets quality standard of care and radiation dose reduction techniq ues were employed. CTDIvol: 7.8 - 8.0 mGy. DLP: 500 mGy-cm. . LIMITATIONS: None. FINDINGS: LOWER CHEST: No significant findings. No nodules or infiltrates. LIVER: No focal lesions. No intrahepatic ductal dilation. Pneumobilia, likely iatrogenic. SPLEEN: Normal size. No focal lesions. PANCREAS: No focal lesions. Prominence of the duct at the pancreatic head and proximal body measurin g up to 5 mm. No stones. GALLBLADDER: Surgically absent. ADRENAL GLANDS: Mild thickening of the left adrenal gland without discrete nodule. Unremarkable righ t adrenal gland. RIGHT KIDNEY AND URETER: No solid masses. Diffuse cortical thinning. No significant calcifications . No hydronephrosis or hydroureter. LEFT KIDNEY AND URETER: No solid masses. Diffuse cortical thinning. No significant calcifications. No hydronephrosis or hydroureter. AORTA AND VESSELS: No aneurysm. No dissection. Renal arteries, SMA, celiac without stenosis. RETROPERITONEUM: No retroperitoneal adenopathy, hemorrhage or masses. BOWEL AND PERITONEAL CAVITY: No evidence of intestinal obstruction. No focal bowel wall thickening. Evidence of prior gastric bypass. APPENDIX: Normal. ABDOMINAL WALL: Diastases recti. No discrete solid masses. No additional hernias. BONES: No acute bony abnormality. No suspicious osseous lesions. OTHER: No other significant finding. IMPRESSION: 1. Evidence of prior gastric bypass. No evidence of acute intra-abdominal process. 2. Status post cholecystectomy. Mild dilation of the main pancreatic duct and pneumobilia, likely s equelae from prior cholecystectomy. TECHNICAL DOCUMENTATION: JOB ID: [id number] Quality ID # [id number]: Final reports with documentation of one or more dose reduction techniques (e.g., Au tomated exposure control, adjustment of the mA and/or kV according to patient size, use of iterative reconstruction technique) 2010 [employer]- All Rights Reserved Reading location - IP/workstation name: [email or web address]
== END ==
LOC: RAD 10:01
PROVIDERS: ATTEND Nurse Practitioner Family
DX: C79.51 Secondary malignant neoplasm of bone (principal)
CPT/HCPCS: 74160; 82565

== ENCOUNTER → 2020-02-18 | Outpatient (CLI) | payer MEDICARE, MEDICAID ==
[2020-02-18 12:02] LABS: ABSOLUTE LYMPHOCYTES (AUTO) 1.8 10^3/uL (0.5-4.7); ABSOLUTE MONOCYTES (AUTO) 0.3 10^3/uL (0.1-1.4); ABSOLUTE NEUT (AUTO) 2.5 10^3/uL (1.7-8.2); BASOPHILS % (AUTO) 0.3 % (0-2); EOSINOPHILS % (AUTO) 0.5 % (0-6); HEMATOCRIT 34.6 % (36.0-47.0); HEMOGLOBIN 10.5 g/dL (12.0-15.5); LYMPHOCYTES % (AUTO) 39.1 % (13-45); MEAN CORPUSCULAR HEMOGLOBIN 23.8 pg (27.0-33.4); MEAN CORPUSCULAR HGB CONC 30.5 g/dL (32.0-36.0); MEAN CORPUSCULAR VOLUME 78 fl (80-97); MONOCYTES % (AUTO) 5.8 % (3-13); PLATELET COUNT 253 10^3/uL (150-450); RED BLOOD COUNT 4.43 10^6/uL (3.72-5.28); RED CELL DISTRIBUTION WIDTH 16.3 % (11.5-14.0); SEGMENTED NEUTROPHILS % (AUTO) 54.3 % (42-78); TOTAL CELLS COUNTED % (AUTO) 100 %; WHITE BLOOD COUNT 4.7 10^3/uL (4.0-10.5)
[2020-02-18 12:22] LABS: BLOOD UREA NITROGEN 27 mg/dL (7-20); CALCIUM 9.4 mg/dL (8.4-10.2); GLUCOSE 119 mg/dL (75-110)
[2020-02-18 12:23] LABS: ANION GAP 6 (5-19); CARBON DIOXIDE 25 mmol/L (22-30); CHLORIDE 108 mmol/L (98-107); POTASSIUM 5.8 mmol/L (3.6-5.0)
[2020-02-18 14:38] LABS: UR PRO/CREAT RATIO RESULT 0.1 mg/mg (0.0-0.2); URINE CREATININE 284.4 mg/dL (15-278); URINE PROTEIN 26.7 mg/dL (<12)
== END ==
LOC: OD 11:20
PROVIDERS: ATTEND Internal Medicine Nephrology
DX: E11.22 Type 2 diabetes mellitus with diabetic chronic kidney disease (principal); I12.9 Hypertensive chronic kidney disease with stage 1 through stage 4 chronic kidney disease, or unspecified chronic kidney disease; N18.3 Chronic kidney disease, stage 3 (moderate); D63.1 Anemia in chronic kidney disease; N25.81 Secondary hyperparathyroidism of renal origin; E87.5 Hyperkalemia
CPT/HCPCS: 36415; 80048; 82570; 83970; 84156; 85025

== ENCOUNTER → 2020-03-13 | Outpatient (CLI) | payer MEDICARE, MEDICAID ==
--- NOTE | 2020-03-13 17:00 | WOMENS IMAGING REPORT ---
EXAM DESCRIPTION: 3D SCREENING MAMMO BILAT IMAGES COMPLETED DATE/TIME: 03/13/2020 8:51 am REASON FOR STUDY: Z12.31 ENCNTR SCREEN MAMMOGRAM FOR MALIGNANT NEOPLASM OF BREAST Z12.31 ENCNTR SCR EEN MAMMOGRAM FOR MALIGNANT NEOPLASM OF JERMAINE COMPARISON: 2016 to 2018 EXAM PARAMETERS: Views: Standard craniocaudal and mediolateral oblique views of each breast recorded using digital acquisition and breast tomosynthesis. Read with the assistance of CAD. .[facility] - [employer] Machine Operator Version 9.2 LIMITATIONS: None. FINDINGS: No suspicious masses, suspicious calcifications or architectural distortion. No areas of c oncern. IMPRESSION: NEGATIVE MAMMOGRAM. BIRADS 1. BREAST DENSITY: b. There are scattered areas of fibroglandular density. BIRAD: ASSESSMENT: 1 NEGATIVE RECOMMENDATION: ROUTINE SCREENING COMMENT: The patient has been notified of the results by letter per MQSA requirements. Additional no tification policies are in place for contacting patient with suspicious or incomplete findings. Quality ID #[id number]: The [employer] recommends an annual screening mammogram for women aged 40 years or over. This facility utilizes a reminder system to ensure that all patients receive reminder letters, and/or direct phone calls for appointments. This includes reminders for routine scr eening mammograms, diagnostic mammograms, or other Breast Imaging Interventions when appropriate. Th is patient will be placed in the appropriate reminder system. TECHNICAL DOCUMENTATION: FINDING NUMBER: (1) ASSESSMENT: (1) JOB ID: [id number] 2010 [employer]- All Rights Reserved Reading location - IP/workstation name: [email or web address]
== END ==
LOC: WI 08:31
PROVIDERS: ATTEND Internal Medicine
DX: Z12.31 Encounter for screening mammogram for malignant neoplasm of breast (principal)
CPT/HCPCS: 77063; 77067

== ENCOUNTER → 2020-07-01 | Outpatient (CLI) | payer MEDICARE, MEDICAID ==
--- NOTE | 2020-07-01 17:14 | RADIOLOGY REPORT (SQ) ---
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 RADIONUCLIDE AND DOSE: 21.8 millicuries Tc-99m Sestamibi. The route of agent administration: Intravenous ADDITIONAL DRUGS AND DOSES: None. TECHNIQUE: Early and delayed images of the neck acquired following radionuclide administration. LIMITATIONS: None. FINDINGS: Thyroid: Normal size. Homogeneous activity. Normal washout. No focal lesions. Parathyroid: No retained activity in the thyroid or elsewhere in the neck to indicate a parathyroid a denoma. Other: No other significant findings. IMPRESSION: NORMAL STUDY. NO EVIDENCE OF PARATHYROID ADENOMA. TECHNICAL DOCUMENTATION: JOB ID: [id number] 2010 [employer]- All Rights Reserved Reading location - IP/workstation name: [email or web address]
== END ==
LOC: RAD 07:16
PROVIDERS: ATTEND Internal Medicine Nephrology
DX: E21.1 Secondary hyperparathyroidism, not elsewhere classified (principal)
CPT/HCPCS: 78070; A9500; Q9969

== ENCOUNTER → 2020-07-08 | Outpatient (CLI) | payer MEDICARE, MEDICAID | LOC: OD 12:02 | PROVIDERS: ATTEND Nurse Practitioner Family | DX: G35 Multiple sclerosis (principal); Z79.899 Other long term (current) drug therapy | CPT/HCPCS: 36415; 86787 ==